=== PATIENT | female | born 2000 | race Caucasian/White ===

== ENCOUNTER 2025-04-11 15:57 | Outpatient (OUT) | payer OTHER, SELFPAY ==
--- OUTSIDE RECORDS SUMMARY | 2025-04-11 16:06 | XMS_ITS | Clinical Summary ---
Author Organization [facility] Address [address] [place] [address] Care Team Providers Care Former Hand Name Role Phone Promise Morley MD Primary Care Provider [phone] Allergies No known active allergies Medications No known medications Active Problems ProblemNoted DateDiagnosed DateGestational diabetes mellitus (GDM) in third trimester ([facility])01/06/2023 Assessment & Plan (03/01/2023 10:08 AM EDT): Continue to check fasting and PP readings with goals of fasting < 95 mg/dl, 1hr < 140 mg/dl, 2 hr < 120 mg/dl. She is to call with any problems or not improving. Send BG readings on a weeklybasis. When Dagmar Durbin goes to the hospital for delivery, they are to stop NPH insulin. If insulin is needed during delivery, it will be given through IV insulin and monitored by their OB. She should not need insulin after delivery. It is recommended to check blood glucose after delivery about once a month to make sure glucose is not increasing and she is not developing type 2 diabetes. She is goingto increase NPH to 26 units at night. Assessment & Plan (01/17/2023 12:49 PM EDT): Continue to check fasting and PP readings with goals of fasting < 95 mg/dl, 1hr < 140 mg/dl, 2 hr < 120 mg/dl. She is to call with any problems or not improving. Send BG readings on a weeklybasis. Will start NPH at night. Instructed on the use of insulin. When Dagmar Durbin goes to the hospital for delivery, they are to stop NPH insulin. If insulin is needed during delivery, it will be given through IV insulin and monitored by their OB. She should not need insulin after delivery. It is recommended to check blood glucose after delivery about once a month to make sure glucose is not increasing and she is not developing type 2 diabetes. Assessment & Plan (01/06/2023 1:00 PM EDT): Discussed risks and benefits of gestational diabetes. Discussed lifestyle modifcations at length. Given meter and instructed on its use. BG goals of fasting < 95, 1 hr < 140, and 2 hr < 120.Pt is to send me readings in one week for review. Pt is to call with any problems. Care plan was discussed and a copy of this was given to the patient along with current A1c, blood pressure, diabetesmedications. Discussed risk of developing type 2 diabetes in the future and the recommendation to get a 2 hr GTT 6 weeks after delivery. Will follow up as needed. Dysfunctional uterine dbjaxldy95/30/2023Impingement syndrome of left shoulder 11/05/2022Infective otitis navbapy2911/05/2022Internal derangement of left ncnsyoav17/30/2023Pain in left nvgqtkeu77/30/2023Parotid mass11/05/2022 Encounters DateTypeDepartmentCare JllzEwyfhsalkes10/03/2025Telephone [facility] [address] [place] [address] Loren Alvares, from Last 3 Months Immunizations ImmunizationAdministration DatesNext DueDTaP, Ueyimqvxvia82/17/2005,10/21/2000, 1999,1999,1999HPV, Wewejnxcraxb25/19/2012,08/27/2011HPV, Qotvmswgxsv13/16/2012Hep A, ped/adol, 2 dose03/24/2012,08/27/2011Hep B, Adolescent or Hbhydenyt42/11/2000,1999,1999HiB, unspecified 03/21/2000,1999,1999,1999IPV08/23/2004Influenza, live, ghugzxpbac69/28/2009Influenza, seasonal, ocaffxoitd62/13/2005,02/28/2004MMR 08/23/2004,03/21/2000Meningococcal FJP9W6602/06/2017Meningococcal QUC3P3208/27/2011 Novel Axkscccya-E3E0-84, nasal04/11/2009Polio, Khxwqisvnrd36/15/2001,1999, 1999Tdap11/23/2019,08/27/20110116Kiluoojbf21/20/2012,03/21/2000 Family History Medical HistoryRelationNameCommentsNo Known ProblemsBrotherHypertensionFather AsthmaMotherDiabetesMotherHypertensionMotherNo Known ProblemsSisterRelationName StatusCommentsBrother2 brothersFatherAliveMotherAliveSister1 sister Social History Tobacco UseTypesPacks/DayYears UsedDateSmoking Tobacco: NeverSmokeless Tobacco: Never Tobacco Cessation:Counseling Given: Not Answered Alcohol UseStandard Drinks/WeekCommentsNever0 (1 standard drink = 0.6 oz pure alcohol)caffeine intake: noneHumiliation, Afraid, Rape, and Kick questionnaire AnswerDate RecordedWithin the last year, have you been afraid of your partner or ex-partner?No01/02/2023Within the last year, have you been humiliated or emotionally abused in other ways by your partner or ex-partner?No01/02/2023 Within the last year, have you been kicked, hit, slapped, or otherwise physically hurt by your partner or ex-partner?No01/02/2023Within the last year, have you been raped or forced to have any kind of sexual activity by your part ner or ex-partner?No01/02/2023Social Connection and Isolation PanelAnswerDate RecordedIn a typical week, how many times do you talk on the phone with family, friends, or neighbors?More than three times a week01/02/2023How often do you get together with friends or relatives?More than three times a week01/02/2023How often do you attend sabianist or taoism services?More than 4 times per year 01/02/2023o you belong to any clubs or organizations such as sabianist groups, unions, fraternal or athletic groups, or school groups?Yes01/02/2023How often do you attend meetings of the clubs or organizations you belong to?More than 4 times per year01/02/2023re you , , , , never , or living with a partner?Rmcpqyb7501/02/2023UDIT-CAnswerDate RecordedQ1: How often do you have a drink containing alcohol?Never01/02/2023Q2: How many drinks containing alcohol do you have on a typical day when you are drinking? Patient does not drink01/02/2023Q3: How often do you have six or more drinks on one occasion?Never01/02/2023Overall Financial Resource Strain (CARDIA)AnswerDate RecordedHow hard is it for you to pay for the very basics like food, housing, medical care, and heating?Not hard at all01/02/2023HQ-2AnswerDate Recorded Patient Health Questionnaire-2 Fvrfl445Fin[facility] [place] of Occupational Health - Occupational Stress QuestionnaireAnswerDate RecordedDo you feel stress - tense, restless, nervous, or anxious, or unable to sleep at night because your mind is troubled all the time - these days?Not at all01/02/2023Exercise Vital SignAnswerDate RecordedOn average, how many days per week do you engage in moderate to strenuous exercise (like a brisk walk)?3 days01/02/2023On average, how many minutes do you engage in exercise at this level?30 min01/02/2023Hunger Vital SignAnswerDate RecordedWithin the past 12 months, you worried that your food would run out before you got the money to buymore.Never true01/02/2023 Within the past 12 months, the food you bought just didn't last and you didn't have money to get more.Never true01/02/2023RAPARE - TransportationAnswerDate RecordedIn the past 12 months, has lack of transportation kept you from medical appointments or from getting medications?No01/02/2023In the past 12 months, has lack of transportation kept you from meetings, work, or from getting things needed for daily living?No01/02/2023Housing Stability Vital SignAnswerDate RecordedIn the last 12 months, was there a time when you were not able to pay the mortgage or rent on time?No01/02/2023In the last 12 months, how many places have you lived?In the last 12 months, was there a time when you did not have a steady place to sleep or slept in ashelter (including now)?No 01/02/2023CommentsUnknownSex and Gender InformationValueDate RecordedSex Assigned at NubmwDvrgki57/30/2023 8:35 AM EDTLegal QyfOeklnl29/15/2023 7:19 PM EDTGender KfpzcugeIllohr24/30/2023 8:35 AM EDTSexual OrientationStraight 11/05/2022 8:35 AM EDT Last Filed Vital Signs Vital SignReadingTime TakenCommentsBlood Rosstudh097/8805/26/2024 2:12 PM EST Geymu5507 3:08 PM CAASwlqmhfvcne56.8 ??C (98.2 ??F)02/28/2023 3:08 PM EDTRespiratory Rate--Oxygen Tmvfwdpvac53%02/28/2023 3:08 PM EDTInhaled Oxygen Concentration--Wvcndi854 kg (278 lb)05/26/2024 2:12 PM TFLSqopbt230.6 cm (5' 6 ) 05/06/2023 1:50 PM ESTBody Mass Index44.8705/06/2023 1:50 PM EST Plan of Treatment Not on file Insurance Care Teams Team MemberRelationshipSpecialtyStart DateEnd Date Promise Morley MD PCP - GeneralFamily Medicine11/12/22
--- OUTSIDE RECORDS SUMMARY | 2025-04-11 16:06 | XMS_ITS | Encounter Summary ---
Author Organization [facility] Address [address] [place] [address] Care Team Providers Care Outbound Sales Agent Name Role Phone Promise Morley MD Primary Care Provider Encounter Details DateTypeDepartmentCare Team (Latest Contact Info)Gwwsdcotrgf12/03/2025Telephone [facility] [address] [facility] [address] [place] [address] Loren Alvares DO [address] [facility] [address] [place] [address] Social History Tobacco UseTypesPacks/DayYears UsedDateSmoking Tobacco: NeverSmokeless Tobacco: NeverAlcohol UseStandard Drinks/WeekCommentsNever0 (1 standard drink = 0.6 oz pure alcohol)caffeine intake: noneHumiliation, Afraid, Rape, and Kick questionnaireAnswerDate RecordedWithin the last year, have you been afraid of your partner or ex-partner?No01/02/2023Within the last year, have you been humiliated or emotionally abused in other ways by your partner or ex-partner?No 01/02/2023Within the last year, have you been kicked, [...] times a week01/02/2023How often do you attend episcopalian or yazidi services?More than 4 times per year 01/02/2023o you belong to any clubs or organizations such as episcopalian groups, unions, fraWebchutney or athletic groups, or school groups?Yes01/02/2023How often do you attend meetings of the clubs or organizations you belong to?More than 4 times per year01/02/2023re you , , , , never , or living with a partner?Liajqqc2501/02/2023UDIT-CAnswerDate RecordedQ1: How often do you have a [...] hard at all01/02/2023HQ-2AnswerDate Recorded Patient Health Questionnaire-2 Rvcax824[facility] [place] of Occupational Health - Occupational Stress QuestionnaireAnswerDate [...] 01/02/2023CommentsUnknownSex and Gender InformationValueDate RecordedSex Assigned at BbypzSaiast00/30/2023 8:35 AM EDTLegal TuxPhteit04/15/2023 7:19 PM EDTGender LweuoepbEajozg35/30/2023 8:35 AM EDTSexual OrientationStraight 11/05/2022 8:35 AM EDTdocumented as of this encounter Miscellaneous Notes * Telephone Encounter - Jane Hernandez RN - 04/11/2025 10:46 AM EST Called and spoke with pt. Confirmed positive UPT. LMP 01/10/25- normally regular. Pt reporting 20 days of light spotting after menses, but states tests throughout were all positive. Reporting spotting has stopped and she has not had any over the last few days. - hx GDM and PCB. Patient of [facility], insurance MMO. Discussed HCG, pt agreeable-asking for order to be sent to [facility]. Order sent, advised pt I will call with results. Discussed repeating if level does not align with LMP. * Telephone Encounter - Alee Obregon - 04/11/2025 10:07 AM EST Positive preg test on 03/06/25. 2nd . LMP 01/20/25. [facility] patient. Had subchorionic hemorrhagewith 1st . Has had some light spotting with this from 03/15 until 04/03 that comes and goes. Has Medical [place]. Please contact. documented in this encounter Plan of Treatment NameTypePriorityAssociated DiagnosesOrder SchedulehCG, quantitative, LabRoutine examination or test, positive result ([facility]) Expected: 04/11/2025 (Approximate), Expires: 04/11/2026documented as of this encounter Visit Diagnoses Diagnosis examination or test, positive result ([facility]) examination or test, positive result documented in this encounter Care Teams Team MemberRelationshipSpecialtyStart DateEnd Date Promise Morley MD PCP - GeneralFamily Medicine11/12/22documented as of this encounter
== END 2025-04-11 15:58 | disposition home or self-care (01) ==
PROVIDERS: PCP Family Medicine; Visit Provider Obstetrics & Gynecology
DX: Z32.01 Encounter for pregnancy test, result positive (principal)
CPT/HCPCS: 36415; 84702

== ENCOUNTER 2025-04-13 06:38 | Outpatient (RCR) | payer OTHER, SELFPAY ==
--- OUTSIDE RECORDS SUMMARY | 2025-04-13 06:44 | XMS_ITS | Encounter Summary ---
Author Organization [facility] Address [address] [place] [address] Care Team Providers Care Bankruptcy Processor Name Role Phone Promise Morley MD Primary Care Provider [phone] Encounter Details DateTypeDepartmentCare Team (Latest Contact Info)Rwwxaoafuxm18/03/2025Telephone [facility] [address] [facility] [address] [place] [address] Loren Alvares DO [address] [facility] [address] [place] [address] Social History Tobacco UseTypesPacks/DayYears UsedDateSmoking Tobacco: NeverSmokeless [...] times a week01/02/2023How often do you attend scientology or mu-ism services?More than 4 times per year 01/02/2023o you belong to any clubs or organizations such as scientology groups, unions, [employer]Tax[employer] or athletic groups, or school groups?Yes01/02/2023How often do you attend meetings of the clubs or organizations you belong to?More than 4 times per year01/02/2023re you , , , , never , or living with a partner?Htuxnns9301/02/2023UDIT-CAnswerDate RecordedQ1: How often do you have a [...] hard at all01/02/2023HQ-2AnswerDate Recorded Patient Health Questionnaire-2 Unwyc455Finbrigham city community hospital [place] of Occupational Health - Occupational Stress QuestionnaireAnswerDate [...] 01/02/2023CommentsUnknownSex and Gender InformationValueDate RecordedSex Assigned at MqpfjWyjixp18/30/2023 8:35 AM EDTLegal PwoEyaodz22/15/2023 7:19 PM EDTGender OxdycxxgFomdbf10/30/2023 8:35 AM EDTSexual OrientationStraight 11/05/2022 8:35 AM EDTdocumented as of this encounter Miscellaneous Notes * Telephone Encounter - Jane Hernandez RN - 04/12/2025 8:15 AM EST Called and spoke with pt. Discussed HCG 10. Advised to have repeated again tomorrow to see what levels are doing based on LMP being 8/4 and having spotting afterwards. Pt agreeable. Orders to be sent to [facility]. * Telephone Encounter - Jane Hernandez RN - 04/11/2025 10:46 AM EST Called and spoke with pt. Confirmed positive UPT. LMP 01/10/25- normally regular. Pt reporting 20 days of light spotting after menses, but states tests throughout were all positive. Reporting spotting has stopped and she has not had any over the last few days. - hx GDM and PCB. Patient of [facility], insurance MMO. Discussed HCG, pt agreeable-asking for order to be sent to [facility]. Order sent, advised pt I will call with results. Discussed repeating if level does not align with LMP. * Telephone Encounter - Alee Sabas - 04/11/2025 10:07 AM EST Positive preg test on 03/06/25. 2nd . LMP 01/20/25. [facility] patient. Had subchorionic hemorrhagewith 1st . Has had some light spotting with this from 03/15 until 04/03 that comes and goes. Has Medical [place]. Please contact. documented in this encounter Plan of Treatment NameTypePriorityAssociated DiagnosesOrder SchedulehCG, quantitative, LabRoutine examination or test, positive result ([facility]) Expected: 04/11/2025 (Approximate), Expires: 04/11/2026hCG, quantitative, pregnancyLabRoutine examination or test, positive result ([facility]) Expected: 04/12/2025 (Approximate), Expires: 04/12/2026documented as of this encounter Visit Diagnoses Diagnosis examination or test, positive result ([facility]) examination or test, positive result documented in this encounter Care Teams Team MemberRelationshipSpecialtyStart DateEnd Date Promise Morley MD PCP - GeneralFamily Medicine11/12/22documented as of this encounter
--- OUTSIDE RECORDS SUMMARY | 2025-04-13 06:44 | XMS_ITS | Clinical Summary ---
Author Organization [facility] Address [address] [place] [address] Care Team Providers Care Volunteer Firefighter Name Role Phone Promise Morley MD Primary Care Provider [phone] Allergies No known active allergies Medications No known medications Active Problems ProblemNoted DateDiagnosed DateGestational diabetes mellitus (GDM) in third trimester ([facility])01/06/2023 Assessment & Plan (03/01/2023 10:08 AM EDT): [...] Will follow up as needed. Dysfunctional uterine zcqfdvay94/30/2023Impingement syndrome of left shoulder 11/05/2022Infective otitis oxrtkcs4811/05/2022Internal derangement of left xcfdqadh85/30/2023Pain in left /30/2023Parotid mass11/05/2022 Encounters DateTypeDepartmentCare LsxkUudezvwokkw12/03/2025Telephone [facility] [address] [place] [address] Loren Alvares, from Last 3 Months Immunizations ImmunizationAdministration DatesNext DueDTaP, Vtqqjnedmzc53/17/2005,10/21/2000, 1999,1999,1999HPV, Eaisnuzprytg68/19/2012,08/27/2011HPV, Bsoauiqfqpx06/16/2012Hep A, ped/adol, 2 dose03/24/2012,08/27/2011Hep B, Adolescent or Flkdwsmjg44/11/2000,1999,1999HiB, unspecified 03/21/2000,1999,1999,1999IPV08/23/2004Influenza, live, efxuvroyka31/28/2009Influenza, seasonal, oesliqlzoi76/13/2005,02/28/2004MMR 08/23/2004,03/21/2000Meningococcal LKN4C7702/06/2017Meningococcal IQT8F8008/27/2011 Novel Fgkuviryp-W2F2-66, nasal04/11/2009Polio, Tbfpsjottwy91/15/2001,1999, 1999Tdap11/23/2019,08/27/20114500Ayslouygs22/20/2012,03/21/2000 Family History Medical HistoryRelationNameCommentsNo Known ProblemsBrotherHypertensionFather AsthmaMotherDiabetesMotherHypertensionMotherNo [...] times a week01/02/2023How often do you attend alevism or church services?More than 4 times per year 01/02/2023o you belong to any clubs or organizations such as alevism groups, unions, fraternal or athletic groups, or school groups?Yes01/02/2023How often do you attend meetings of the clubs or organizations you belong to?More than 4 times per year01/02/2023re you , , , , never , or living with a partner?Wkubhpk6101/02/2023UDIT-CAnswerDate RecordedQ1: How often do you have a [...] hard at all01/02/2023HQ-2AnswerDate Recorded Patient Health Questionnaire-2 Pecom888F[facility] [place] of Occupational Health - Occupational Stress QuestionnaireAnswerDate [...] 01/02/2023CommentsUnknownSex and Gender InformationValueDate RecordedSex Assigned at ZqzacKuhhvi83/30/2023 8:35 AM EDTLegal JyoDnxcqp05/15/2023 7:19 PM EDTGender FfbxoexpIqheiy21/30/2023 8:35 AM EDTSexual OrientationStraight 11/05/2022 8:35 AM EDT Last Filed Vital Signs Vital SignReadingTime TakenCommentsBlood Vmvqqbtx800/8805/26/2024 2:12 PM EST Dvsom3321 3:08 PM ORFOcunrddqwgq46.8 ??C (98.2 ??F)02/28/2023 3:08 PM EDTRespiratory Rate--Oxygen Nuzlswazwl74%02/28/2023 3:08 PM EDTInhaled Oxygen Concentration--Rlofss436 kg (278 lb)05/26/2024 2:12 PM CDDWwxmos662.6 cm (5' 6 ) 05/06/2023 1:50 PM ESTBody Mass Index44.8705/06/2023 1:50 PM EST Plan of Treatment Not on file Insurance Care Teams Team MemberRelationshipSpecialtyStart DateEnd Date Promise Morley MD PCP - GeneralFamily Medicine11/12/22
== END 2025-05-09 08:28 | disposition home or self-care (01) ==
LOC: LAB 06:38
PROVIDERS: PCP Family Medicine; Visit Provider Obstetrics & Gynecology
DX: Z32.01 Encounter for pregnancy test, result positive (principal); Z51.81 Encounter for therapeutic drug level monitoring; Z79.899 Other long term (current) drug therapy
CPT/HCPCS: 36415; 84702

== ENCOUNTER 2025-05-02 10:40 | Emergency (ER) | payer OTHER, SELFPAY ==
--- OUTSIDE RECORDS SUMMARY | 2025-04-18 08:30 | XMS_ITS | Encounter Summary ---
Author Organization [facility] Address [address] [place] [address] Care Team Providers Care Cat Scan Technologist Name Role Phone Promise Morley MD Primary Care Provider [phone] Reason for Visit * ReasonCommentsInitial VisitNurse Visit * Maternity Services (Routine) - ClosedSpecialtyDiagnoses / ProceduresReferred By ContactReferred To ContactObstetrics and Gynecology Diagnoses Encounter for supervision of other normal , first trimester ([facility]) Procedures Please check global maternity benefits. NIKKI 10/17/2025. . Lroen Alvares, DO [address] [place] [address] Phone: tel: fax: Loren Alvares, DO [address] [place] [address] Phone: tel: fax: Referral IDStatusReasonStart DateExpiration DateVisits RequestedVisits [id number] Other / Encounter Details DateTypeDepartmentCare Team (Latest Contact Info)Bcftdczvixf66/10/2025 8:30 AM ESTInitial [facility] [address] [place] [address] GA: 10w0d Social History Tobacco UseTypesPacks/DayYears UsedDateSmoking Tobacco: NeverSmokeless Tobacco: NeverAlcohol UseStandard Drinks/WeekCommentsNever0 (1 standard drink = 0.6 oz pure alcohol)caffeine intake: 1 cup of r7Kqkyspdvqqz, Afraid, Rape, and Kick questionnaireAnswerDate RecordedWithin the [...] times a week01/02/2023How often do you attend shinto or jew services?More than 4 times per year 01/02/2023o you belong to any clubs or organizations such as shinto groups, unions, fraternal or athletic groups, or school groups?Yes01/02/2023How often do you attend meetings of the clubs or organizations you belong to?More than 4 times per year01/02/2023re you , , , , never , or living with a partner?Jndbyxk8901/02/2023UDIT-CAnswerDate RecordedQ1: How often do you have a [...] hard at all01/02/2023HQ-2AnswerDate Recorded Patient Health Questionnaire-2 [place] [facility] [facility] [employer] - Occupational Stress QuestionnaireAnswerDate [...] steady place to sleep or slept in [facility] (including now)?No 01/02/2023Estimated Date of EberorsbBmmjycfuRqn90/08/2026Based on UltrasoundSex and Gender InformationValueDate RecordedSex Assigned at Zztcny1611/05/2022 8:35 AM EDTLegal RscTjrfbr17/15/2023 7:19 PM EDTGender Identity Nmfvpl9811/05/2022 8:35 AM EDTSexual LmofgutfnafEidizwgx44/30/2023 8:35 AM EDT documented as of this encounter Progress Notes * Marguerite Perez LPN - 04/18/2025 8:30 AM EST Name: Dagmar Durbin Date/Time of Service:04/18/2025 9:04 AM :2000 Age: 25 y.o. Chief Complaint Chief Complaint Patient presents with Initial Visit Nurse Visit Dagmar Durbin is a 25 y.o. at 14w0d with a working estimated date of delivery of 10/17/2025, by Last Menstrual Period who presents for an initial visit. OB History Para Term AB Living 2 1 1 1 SAB IAB Ectopic Multiple Live Births 1 # Outcome Date GA Lbr Tylor/2nd Weight Sex Type Anes PTL Lv 2 Current 1 Term 03/24/23 39w1d 8 lb 10 oz M CS-LTranv EPI APRYL Complications: Failure to progress in labor ([facility]) Obstetric Comments Pap smear 05/06/23 wnl HCG 47,000 04/11/25 HCG 57,913 04/13/25 Past Medical / Surgical History Medical History[1] Surgical History[2] Family History Family History[3] Social History reports that she has never smoked. She has never used smokeless tobacco. She reports that she does not drink alcohol and does not use drugs. Tobacco Use History[4] Genetic Screening Genetic Screening/Teratology Counseling- Includes patient, baby's father, or anyone in either family with: Positive Medications (including supplements, vitamins, herbs, or OTC drugs)/illicit/recreational drugs/alcohol since last menstrual period Yes If yes, agent(s) and strength/dosage see med list Negative Patient's age 35 years or older as of estimated date of delivery No Thalassemia (Telugu, Bangladeshi, Mediterranean, or background): MCV less than 80 No Neural tube defect (Meningomyelocele, Spina bifida, or Anencephaly) No Congenital heart defect No Down syndrome No Stiven-Sachs (Ashkenazi Synagogue, Cajun, Faroese [place]) No Lasha disease (Ashkenazi Synagogue) No Familial dysautonomia (Ashkenazi Synagogue) No Sickle cell disease or trait () No Hemophilia or other blood disorders No Muscular dystrophy No Cystic fibrosis No Debary's chorea No Intellectual disability and/or autism No Other inherited genetic or chromosomal disorder No Maternal metabolic disorder (eg. Type 1 diabetes, PKU) No Patient or baby's father had child with defects not listed above No Recurrent loss, or a stillbirth No MEDICATIONS: Medications Ordered Prior to Encounter[5] Allergies Allergies[6] Patient reports nausea and vomiting. Discussed smaller meals, michelle products, OTC Vitamin B6 50mg BID and Unisom 25mg BID. Pt asking for zofran d/t it working best last . Pt states she did have bleeding for 3 weeks straight. Pt states it was light spotting but has since stopped. Advised pt bleeding can be normal and HCG were going up appropriately. Pt states she did go to get an US donein Jeannine - pt did get to hear babys heartbeat at that appt. Patient counseled on Genetic and Chromosomal testing. Pt not interested at this time. Last PAP: 05/06/23 neg ASSESSMENT / PLAN Labs Ordered and printed for pt to take with her Appointments scheduled for US on 04/19/25. Advised pt KER schedule is booked but we would reach outto her tomorrow to schedule NOB Marguerite Perez LPN 04/18/2025 9:04 AM [1] Past Medical History: Diagnosis Date Depression not current Gestational diabetes ([facility]) Varicella zoster [2] Past Surgical History: Procedure Laterality Date SECTION, LOW TRANSVERSE 03/24/2023 CHOLECYSTECTOMY 05/2018 COLONOSCOPY IUD INSERTION 07/09/2017 Nexplanon insertion NAIL REMOVAL 06/25/2017 [3] Family History Problem Relation Name Age of Onset Asthma Mother Diabetes Mother Hypertension Mother Sleep apnea Mother Hypertension Father Sleep apnea Father No Known Problems Sister Sleep apnea Brother Sleep apnea Maternal Grandmother Sleep apnea Maternal Grandfather Leukemia Paternal Grandmother Sleep apnea Paternal Grandfather [4] Social History Tobacco Use Smoking Status Never Smokeless Tobacco Never [5] Current Outpatient Medications on File Prior to Visit Medication Sig Dispense Refill multivitamin () 27-0.8 MG tablet Take 1 tablet by mouth Daily No current facility-administered medications on file prior to visit. [6] No Known Allergies documented in this encounter Plan of Treatment DateTypeDepartmentCare Team (Latest Contact Info)Fjptpfneesi06/16/2025 3:30 PM ESTRoutine [facility] [place] [facility] [address] [place] [address] Giorgio Loren Hernández DO [address] [place] [address] documented as of this encounter Goals GoalPatient Goal TypeAssociated ProblemsRecent ProgressPatient-Stated?Author Record Your Blood Sugar Daily Care PlanMeal Tracking and Blood Sugar MonitoringNoMarguerite Perez LPNdocumented as of this encounter Procedures Procedure NamePriorityDate/TimeAssociated DiagnosisCommentsDRUG SCREEN 17 W/CONF, QONwivmtd15/10/2025 9:19 AM EST Encounter for drug screening URINE CULTURE CLEAN CATCH HTOTZLVopmyhu81/10/2025 9:19 AM EST UR MICROSCOPIC TZJGPRShebdlb77/10/2025 9:19 AM EST RPR (DX) W/REFL TITER AND CONFIRMATORY VYWAGJBPgmewkp80/10/2025 9:19 AM EST care, subsequent in first trimester ([facility]) HEPATITIS C NRRFHNUHKrmiwwi38/10/2025 9:19 AM EST care, subsequent in first trimester ([facility]) HYPERCOAG PANEL OXCEHETlecphs56/10/2025 9:19 AM EST care, subsequent in first trimester ([facility]) RUBELLA AB (IGG), IMMUNE LDNDXHTocvnox58/10/2025 9:19 AM EST care, subsequent in first trimester ([facility]) HEPATITIS B SURFACE ANTIGEN W/REFL JGWIUPKWdsqdtl58/10/2025 9:19 AM EST care, subsequent in first trimester ([facility]) URINALYSIS, COMPLETE W/NGBLCMFAHBSvbmqes63/10/2025 9:19 AM EST care, subsequent in first trimester ([facility]) CBC (INCLUDES DIFF/PLT)Buawajp1604/18/2025 9:19 AM EST care, subsequent in first trimester ([facility]) BLOOD TYPE AND ZHEUTOLrxsnxn40/10/2025 9:19 AM EST care, subsequent in first trimester ([facility]) CULTURE, URINE, AKHHXVYHzlymza43/10/2025 9:19 AM EST care, subsequent in first trimester ([facility]) documented in this encounter Results * Urine Culture Clean Catch Reflex (04/18/2025 9:19 AM EST)ComponentValueRef RangeTest MethodAnalysis TimePerformed AtPathologist SignatureUr Cult 1No growthLABCORPSpecimen (Source)Anatomical Location / LateralityCollection Method / VolumeCollection TimeReceived Time04/18/2025 9:19 AM EST04/18/2025 Narrative [facility] - 04/20/2025 11:06 PM EST Performed at: [address] ??[id number] Operations Assistant: Manuel Sullivan PhD, Phone: ??[phone] Authorizing ProviderResult TypeResult StatusKathleen E Rinkes DOLAB URINE ORDERABLESFinal ResultPerforming OrganizationAddressCity/State/[facility] CodePhone Number [facility] * (ABNORMAL) Ur Microscopic Reflex (04/18/2025 9:19 AM EST)ComponentValueRef RangeTest MethodAnalysis TimePerformed AtPathologist SignatureWBC Ur11-30(A)0 - 5 /hpfLABCORPRBC UrNone seen0 - 2 /hpfLABCORPEpithelial Cells (non renal) Ur 0-100 - 10 /hpfLABCORPCasts UrNone seenNone seen /lpfLABCORPBacteria Ur Moderate(A)None seen/FewLABCORPSpecimen (Source)Anatomical Location / LateralityCollection Method / VolumeCollection TimeReceived Time04/18/2025 9:19 AM EST04/18/2025 Narrative [facility] - 04/20/2025 11:06 PM EST Performed at: [address] ??[id number] Operations Assistant: Manuel Sullivan PhD, Phone: ??[phone] Authorizing ProviderResult TypeResult StatusKathleen E Rinkes DOLAB URINE ORDERABLESFinal ResultPerforming OrganizationAddSelect Specialty Hospital [facility] Laurel Highlandsty/State/ZIP CodePhone Number [facility] * Rpr (dx) w/refl titer and confirmatory testing (04/18/2025 9:19 AM EST) ComponentValueRef RangeTest MethodAnalysis TimePerformed AtPathologist SignatureRPRNon ReactiveNon ReactiveLABCORPSpecimen (Source)Anatomical Location / LateralityCollection Method / VolumeCollection TimeReceived Time BloodVenous blood specimen / Ighdeys7504/18/2025 9:19 AM EST04/18/2025 Narrative [facility] - 04/20/2025 11:06 PM EST Performed at: [address] ??[id number] Operations Assistant: Manuel Sullivan PhD, Phone: ??[phone] Authorizing ProviderResult TypeResult StatusKathleen E Rinkes DOLAB BLOOD ORDERABLESFinal ResultPerforming OrganizationAddSelect Specialty Hospital [facility] Highlandsty/State/[facility] CodePhone Number [facility] * HIV-2 antigen (04/18/2025 9:19 AM EST)ComponentValueRef RangeTest Method Analysis TimePerformed AtPathologist SignatureHIV Scr 4th GenNon ReactiveNon ReactiveLABCORPComment: HIV-1/HIV-2 antibodies and HIV-1 p24 antigen were NOT detected. There is no laboratory evidence of HIV infection. HIV Negative Specimen (Source)Anatomical Location / LateralityCollection Method / Volume Collection TimeReceived TimeBloodVenous blood specimen / Tdsmpmz8404/18/2025 9:19 AM EST04/18/2025 Narrative [facility] - 04/20/2025 11:06 PM EST Performed at: [address] ??[id number] Operations Assistant: Manuel Sullivan PhD, Phone: ??[phone] Authorizing ProviderResult TypeResult StatusLoren Alvares DOL BLOOD ORDERABLESFinal ResultPerforming OrganizationAddressCity/State/ZIP CodePhone Number [facility] * DRUG SCREEN 17 W/CONF, UR (04/18/2025 9:19 AM EST)ComponentValueRef RangeTest MethodAnalysis TimePerformed AtPathologist AaxoxpocsRZVQVSJVGU16>=20 mg/dL [facility]ABCORPComment:REFERENCE RANGE: Ref Range>=20ETHANOL BIOMARKERS IANegative CUTOFF:500 ng/mLLABCORPAMPHETAMINES IANegativeCUTOFF:300 ng/mLLABCORP BARBITURATES IANegativeCUTOFF:200 ng/mLLABCORPBENZODIAZEPINES IANegative CUTOFF:50 ng/mLLABCORPCOCAINE METABOLITE IANegativeCUTOFF:150 ng/mLLABC[facility]P PHENCYCLIDINE IANegativeCUTOFF:25 ng/mLLABCORPCANNABINOIDS IANegativeCUTOFF:20 ng/mLLABCORP6-ACETYLMORPHINE IANegativeCUTOFF:10 ng/mLLABCORPOPIATE CLASS IA NegativeCUTOFF:100 ng/mLLABCORPOXYCODONE CLASS IANegativeCUTOFF:100 ng/mL LABCORPMETHADONE IANegativeCUTOFF:100 ng/mLLABCORPFENTANYL IANegative CUTOFF:2.0 ng/mLLABCORPBUPRENORPHINE IANegativeCUTOFF:5.0 ng/mLLABCORPTRAMADOL IANegativeCUTOFF:200 ng/mLLABCORPPROPOXYPHENE IANegativeCUTOFF:300 ng/mL LABCORPTAPENTADOL IANegativeCUTOFF:200 ng/mLLABCORPNICOTINE METABOLITENegative LABCORPCOTININENot Detectedng/mLLABCORPSpecimen (Source)Anatomical Location / LateralityCollection Method / VolumeCollection TimeReceived Time04/18/2025 9:19 AM EST04/18/2025 Narrative [facility] - 04/20/2025 11:06 PM EST Test(s) 956737-CJGBGOK BIOMARKERS IA; 721921-TQZCGEQR IA was developed and its performance characteristics determined by [facility]. It has not been cleared or approved by the Food and Drug Administration. Performed at: ??01 - [facility] [address] [place] [address] ??[id number] Operations Assistant: Yessenia Quan [facility], Phone: ??[phone] Authorizing ProviderResult TypeResult StatusKatcharu PIRES BLOOD ORDERABLESFinal ResultPerforming OrganizationAddressty/State/ZIP CodePhone Number [facility] * Hepatitis C antibody (04/18/2025 9:19 AM EST)ComponentValueRef RangeTest MethodAnalysis TimePerformed AtPathologist SignatureHep C Virus AbNon Reactive Non ReactiveLABCORPComment: HCV antibody alone does not differentiate between previously resolved infection and active infection. Equivocal and Reactive HCV antibody results should be followed up with an HCV RNA test to support the diagnosis of active HCV infection. Specimen (Source)Anatomical Location / LateralityCollection Method / Volume Collection TimeReceived TimeBloodVenous blood specimen / Ujosthp3404/18/2025 9:19 AM EST04/18/2025 Narrative [facility] - 04/20/2025 11:06 PM EST Performed at: - [facility] ??[id number] Operations Assistant: Manuel Sullivan PhD, Phone: ??[phone] Authorizing ProviderResult TypeResult StatusLoren PIRES BLOOD ORDERABLESFinal ResultPerforming OrganizationAddressty/State/ZIP CodePhone Number [facility] * Type and screen (04/18/2025 9:19 AM EST)ComponentValueRef RangeTest Method Analysis TimePerformed AtPathologist SignatureABO GroupingOLABCORPRh Factor PositiveLABCORPComment: Please note: Prior records for this patient's ABO / Rh type are not available for additional verification. Antibody ScreenNegativeNegativeLABCORPSpecimen (Source)Anatomical Location / LateralityCollection Method / VolumeCollection TimeReceived TimeBloodVenous blood specimen / Ohccrda7304/18/2025 9:19 AM EST04/18/2025 Narrative [facility] - 04/20/2025 11:06 PM EST Performed at: [address] ??[id number] Operations Assistant: Manuel Sullivan PhD, Phone: ??[phone] Authorizing ProviderResult TypeResult StatusKatcharu Alvares DOLAB BLOOD ORDERABLESFinal ResultPerforming OrganizationAddressCity/State/ZIP CodePhone Number [facility] * Hepatitis B surface antigen (04/18/2025 9:19 AM EST)ComponentValueRef Range Test MethodAnalysis TimePerformed AtPathologist SignatureHep B Surf Ag Scr NegativeNegativeLABCORPSpecimen (Source)Anatomical Location / Laterality Collection Method / VolumeCollection TimeReceived TimeBloodVenous blood specimen / Fqksxps2204/18/2025 9:19 AM EST04/18/2025 Narrative [facility] - 04/20/2025 11:06 PM EST Performed at: - [facility] ??[id number] Operations Assistant: Manuel Sullivan PhD, Phone: ??[phone] Authorizing ProviderResult TypeResult StatusKatcharu Alvares DOLAB BLOOD ORDERABLESFinal ResultPerforming OrganizationAddressCity/State/ZIP CodePhone Number [facility] * Rubella antibody, IgG (04/18/2025 9:19 AM EST)ComponentValueRef RangeTest MethodAnalysis TimePerformed AtPathologist SignatureRubella IgG Abs5.51Immune >0.99 indexLABCORPComment: Non-immune <0.90 ?Equivocal ??0.90 - 0.99 Immune >0.99 Specimen (Source)Anatomical Location / LateralityCollection Method / Volume Collection TimeReceived TimeBloodVenous blood specimen / Nmdybhf7504/18/2025 9:19 AM EST04/18/2025 Narrative [facility] - 04/20/2025 11:06 PM EST Performed at: - [facility] ??[id number] Operations Assistant: Manuel Sullivan PhD, Phone: ??[phone] Authorizing ProviderResult TypeResult StatusKatcharu Alvares DOLAB BLOOD ORDERABLESFinal ResultPerforming OrganizationAddressCity/State/ZIP CodePhone Number [facility] * (ABNORMAL) CBC and differential (04/18/2025 9:19 AM EST)ComponentValueRef RangeTest MethodAnalysis TimePerformed AtPathologist SignatureWBC9.53.4 - 10.8 x10E3/uLLABCORPRBC5.023.77 - 5.28 x10E6/mTTOELMQAHye43.911.1 - 15.9 g/dL NCZJSUPSxz90.834.0 - 46.6 %MGJFTIKNJS0610 - 97 yMWPOPNXWFXM89.726.6 - 33.0 pg HVNSBUTJOBD43.331.5 - 35.7 g/cMGRXRSUVAQB94.811.7 - 15.4 %DQSCWJLKgphhrotk707 (H)150 - 450 x10E3/hUTJIFEPCChbdkexxruw29Bjv Estab. %ZHWYBASTvverl71Aqa Estab. %FEZTERTRdjbawlin7Edk Estab. %UYMXYPZGuy2Wtv Estab. %ZNHGSWCCizmt9Orz Estab. %LABCORPNeutrophils Abs6.31.4 - 7.0 x10E3/uLLABCORPLymphs Abs2.40.7 - 3.1 x10E3/uLLABCORPMonocytesAbs0.70.1 - 0.9 x10E3/uLLABCORPEos Abs0.20.0 - 0.4 x10E3/uLLABCORPBaso Abs0.00.0 - 0.2 x10E3/uLLABCORPImmature Aanoxyzbolvy2Wsx Estab. %LABCORPImmature Grans Abs0.00.0 - 0.1 x10E3/uLLABCORPSpecimen (Source) Anatomical Location / LateralityCollection Method / VolumeCollection Time Received TimeBloodVenous blood specimen / Bnsplrk6104/18/2025 9:19 AM EST 04/18/2025 Narrative [facility] - 04/20/2025 11:06 PM EST Performed at: [address] ??[id number] Operations Assistant: Manuel Sullivan PhD, Phone: ??[phone] Authorizing ProviderResult TypeResult StatusLoren Alvares DOLAB BLOOD ORDERABLESFinal ResultPerforming OrganizationAddressCity/State/ZIP CodePhone Number [facility] * (ABNORMAL) Urinalysis with microscopic (04/18/2025 9:19 AM EST)ComponentValue Ref RangeTest MethodAnalysis TimePerformed AtPathologist SignatureSpecific Hessmer Urine1.0051.005 - 1.030LABCORPpH Urine6.55.0 - 7.5LABC[facility]PColor Urine YellowYellowLABCORPAppearance UrineClearClearLABCORPWBC Esterase Urine1+(A) NegativeLABCORPProtein UrineNegativeNegative/TraceLABCORPGlucose UrineNegative NegativeLABCORPKetones UrineNegativeNegativeLABCORPOccult Blood UrineTrace(A) NegativeLABCORPBilirubin UrineNegativeNegativeLABCORPUrobilinogen,Semi-Qn Urine0.20.2 - 1.0 mg/dLLABCORPNitrite UrineNegativeNegativeLABCORPUr MicroscopicSee below:[facility]PComment:Microscopic was indicated and was performed.Specimen (Source)Anatomical Location / LateralityCollection Method / VolumeCollection TimeReceived TimeUrineUrine specimen obtained by clean catch procedure / Yvbtgbl1204/18/2025 9:19 AM EST04/18/2025 Narrative [facility] - 04/20/2025 11:06 PM EST Performed at: [address] ??[id number] Operations Assistant: Manuel Sullivan PhD, Phone: ??[phone] Authorizing ProviderResult TypeResult StatusKathleen E Rinkes DOLAB URINE ORDERABLESFinal ResultPerforming OrganizationAddressCity/State/ZIP CodePhone Number [facility] * Urine culture (04/18/2025 9:19 AM EST)ComponentValueRef RangeTest Method Analysis TimePerformed AtPathologist SignatureUrine Cult Rt StatusFinal report [facility]PSpecimen (Source)Anatomical Location / LateralityCollection Method / VolumeCollection TimeReceived TimeUrineUrine specimen obtained by clean catch procedure / Rekeeqp2204/18/2025 9:19 AM EST04/18/2025omment:UR Narrative [facility] - 04/20/2025 11:06 PM EST Performed at: [address] ??[id number] Operations Assistant: Manuel Sullivan PhD, Phone: ??[phone] Authorizing ProviderResult TypeResult StatusKathlwendi Alvares DOL MICROBIOLOGY - GENERAL ORDERABLESFinal ResultPerforming OrganizationAddressCity/State/ZIP CodePhone Number [facility] documented in this encounter Visit Diagnoses Diagnosis care, subsequent in first trimester ([facility]) Encounter for drug screening Nausea and vomiting during ([facility]) documented in this encounter Additional Health Concerns Active ProblemsNoted DateDiagnosed DateMeal Tracking and Blood Sugar Monitoring 04/18/2025documented as of this encounter Care Teams Team MemberRelationshipSpecialtyStart DateEnd Date Promise Morley MD [address] [place] [address] PCP - GeneralFamily Medicine11/12/22documented as of this encounter
--- OUTSIDE RECORDS SUMMARY | 2025-04-19 15:30 | XMS_ITS | Encounter Summary ---
Author Organization [facility] Address [address] [place] [address] Care Team Providers Care Assessment Manager Name Role Phone Promise Morley MD Primary Care Provider [phone] Encounter Details DateTypeDepartmentCare Team (Latest Contact Info)Dkxrdmebtkn46/11/2025 3:30 PM ESTAncillary Procedure [facility] [address] [place] [phone] related condition in first trimester ([facility]); Obesity affecting in first trimester, unspecified obesity type ([facility]HS-HCC) Social History Tobacco UseTypesPacks/DayYears UsedDateSmoking Tobacco: NeverSmokeless Tobacco: NeverAlcohol UseStandard Drinks/WeekCommentsNever0 (1 standard drink = 0.6 oz pure alcohol)caffeine intake: 1 cup of h0Mqcwxrdnezh, Afraid, Rape, and Kick questionnaireAnswerDate RecordedWithin the [...] times a week01/02/2023How often do you attend rastafarian or congregational services?More than 4 times per year 01/02/2023o you belong to any clubs or organizations such as rastafarian groups, unions, fraSynqera or athletic groups, or school groups?Yes01/02/2023How often do you attend meetings of the clubs or organizations you belong to?More than 4 times per year01/02/2023re you , , , , never , or living with a partner?Dvgnmch9101/02/2023UDIT-CAnswerDate RecordedQ1: How often do you have a [...] hard at all01/02/2023HQ-2AnswerDate Recorded Patient Health Questionnaire-2 Gkpaw686[facility] [place] of Occup[facility] Health - Occupational Stress QuestionnaireAnswerDate [...] sleep or slept in ashelter (including now)?No 01/02/2023Estimated Date of NxdylotlZtxufzhoYtb96/08/2026ased on UltrasoundSex and Gender InformationValueDate RecordedSex Assigned at Ojrhqe3311/05/2022 8:35 AM EDTLegal VntChcpah85/15/2023 7:19 PM EDTGender Identity Bhjlil5611/05/2022 8:35 AM EDTSexual RtutiahoajgHsydgfyw23/30/2023 8:35 AM EDT documented as of this encounter Plan of Treatment DateTypeDepartmentCare Team (Latest Contact Info)Ikwqstoavzn83/16/2025 3:30 PM ESTRoutine [facility] [address] [place] [address] Loren Alvares DO [address] [place] [address] documented as of this encounter Goals GoalPatient Goal TypeAssociated ProblemsRecent ProgressPatient-Stated?Author Record Your Blood Sugar Daily Care PlanMeal Tracking and Blood Sugar MonitoringNoMarguerite Perez LPNdocumented as of this encounter Procedures Procedure NamePriorityDate/TimeAssociated DiagnosisCommentsUS OB < 14 WEEKS MMSJOMpecpxq71/11/2025 3:45 PM EST related condition in first trimester (HHS-HCC) Obesity affecting in first trimester, unspecified obesity type (HHS-HCC) documented in this encounter Results * US OB less than 14 weeks early (04/19/2025 3:45 PM EST)Anatomical Region LateralityModalityBodyUltrasoundStudy GAStudy DateStudy EDDWorking NIKKI (Source)505/04/2026 (Last Menstrual Period)Fetus A MeasurementsValue GA (days)CRLSac DiameterComposite GASpecimen (Source)Anatomical Location / LateralityCollection Method / VolumeCollection TimeReceived Time Narrative 04/21/2025 12:39 PM EST Table formatting from the original result was not included. Images from the original result were not included. ?? Obstetrics & Gynecology ? [address] ? [address] ? [address] ?[address], [facility] [address] ? [place] [address] [place] [address] ? - - - - - - - - - - - - - - - - - - - - - - - - - - - - - - - - - - - - - - - - - - - - - - - - - - - - - - - - - - - - - - - - - - ?Early Assessment Patient name: Dagmar Durbin : 2000 (25 y.o.) Date of exam: 04/19/25 - - - - - - - - - - - - - - - - - - - - - - - - - - - - - - - Indication: uncertain dates, spotting Surgical History: c/section Method: Transabdominal ultrasound examination View: Adequate - - - - - - - - - - - - - - - - - - - - - - - - - - - - - - - Type of gestation: Kumar Number of embryos: 1 - - - - - - - - - - - - - - - - - - - - - - - - - - - - - - - Dating: Method of dating: Date: Details: Gest Age: NIKKI: Assigned dating: LMP 01/10/25 ??14 w 1 d 10/17/25 [] Ultrasound 04/19/25 CRL ??10 w 1 d 11/14/25 [x] - - - - - - - - - - - - - - - - - - - - - - - - - - - - - - - Fetus: Gestational sac: visualized Location: Intrauterine Yolk sac: visualized Amniotic sac: visualized Embryo: visualized Cardiac activity: present FHR: 176 bpm - - - - - - - - - - - - - - - - - - - - - - - - - - - - - - - Maternal Structures: Uterus: Visualized Size: 10.8 x 7.9 x 7.0 cm ??Volume: 311.6 cm?? Appearance: normal in size and contour There is a 0.9 x 0.8 x 1.6 cm hypoechogenic area located adjacent to the gestational sac, felt to represent a subchorionic bleed. Right ovary: Visualized Size: 2.6 x 2.0 x 2.0 cm ??Volume: 5.6 cm?? Appearance: no cysts visualized No adnexal mass visualized Left ovary: Visualized Size: 2.7 x 2.3 x 1.8 cm ??Volume: 5.6 cm?? Appearance: The left ovary contains the corpus luteal cyst: thick-walled, mildly echogenic (2.0 x 1.5 x 1.6 cm) No adnexal mass visualized - - - - - - - - - - - - - - - - - - - - - - - - - - - - - - - - - - - - - - - - - - - - - - - - - - - - - - - - - - - - - - - - - - Impression: There is a single intrauterine measuring 10 w 1 d, which establishes an EDC of 11/14/2025. *Please note that a normal ultrasound does not rule out anomalies* - - - - - - - - - - - - - - - - - - - - - - - - - - - - - - - - - - - - - - - - - - - - - - - - - - - - - - - - - - - - - - - - - - Ordering/Reading Provider: Loren Alvares D.O. ??[employer] Professor: Barrie Mcrae RDMS Authorizing ProviderResult TypeResult StatusLoren Alvares DOI OB US PROCEDURESFinal Result documented in this encounter Visit Diagnoses Diagnosis related condition in first trimester (HHS-HCC) Obesity affecting in first trimester, unspecified obesity type (HHS-HCC) documented in this encounter Additional Health Concerns Active ProblemsNoted DateDiagnosed DateMeal Tracking and Blood Sugar Monitoring 04/18/2025documented as of this encounter Care Teams Team MemberRelationshipSpecialtyStart DateEnd Date Promise Morley MD [address] [place] [address] PCP - GeneralFamily Medicine11/12/22documented as of this encounter
--- OUTSIDE RECORDS SUMMARY | 2025-04-28 11:45 | XMS_ITS | Encounter Summary ---
Author Organization [facility] Address [address] [place] [address] Care Team Providers Care Bilingual Sales Assistant Name Role Phone Promise Morley MD Primary Care Provider [phone] Encounter Details DateTypeDepartmentCare Team (Latest Contact Info)Alwycvqireh83/20/2025 11:45 AM ESTInitial [facility] [address] [place] [address] Loren Alvares DO [address] [place] [address] GA: 11w3d Social History Tobacco UseTypesPacks/DayYears UsedDateSmoking Tobacco: NeverSmokeless Tobacco: NeverAlcohol UseStandard Drinks/WeekCommentsNever0 (1 standard drink = 0.6 oz pure alcohol)caffeine intake: 1 cup of o7Sbtnzxzouys, Afraid, Rape, and Kick questionnaireAnswerDate RecordedWithin the [...] times a week01/02/2023How often do you attend zoroastrianism or taoism services?More than 4 times per year 01/02/2023o you belong to any clubs or organizations such as zoroastrianism groups, unions, fraternal or athletic groups, or school groups?Yes01/02/2023How often do you attend meetings of the clubs or organizations you belong to?More than 4 times per year01/02/2023re you , , , , never , or living with a partner?Mddflyd2301/02/2023UDIT-CAnswerDate RecordedQ1: How often do you have a [...] hard at all01/02/2023HQ-2AnswerDate Recorded Patient Health Questionnaire-2 Egtcx385Finhigh[facility] [place] of Occupational Health - Occupational Stress QuestionnaireAnswerDate [...] steady place to sleep or slept in [facility] (including now)?No 01/02/2023Estimated Date of XpumwogfMscsaqtaXdn68/08/2026ased on UltrasoundSex and Gender InformationValueDate RecordedSex Assigned at Leavaz0211/05/2022 8:35 AM EDTLegal KowMbqlzj74/15/2023 7:19 PM EDTGender Identity Nmbqcc8311/05/2022 8:35 AM EDTSexual CvjwxdyuirgZjodfsnh12/30/2023 8:35 AM EDT documented as of this encounter Last Filed Vital Signs Vital SignReadingTime TakenCommentsBlood Wxtelgbr157/8404/28/2025 11:39 AM EST Pulse--Temperature--Respiratory Rate--Oxygen Saturation--Inhaled Oxygen Concentration--Eukteg516 kg (261 lb)04/28/2025 11:39 AM ESTHeight--Body Mass Index42.13107/06/2022 1:50 PM ESTdocumented in this encounter Progress Notes * Loren Alvares, DO - 04/28/2025 11:45 AM EST Urine N/N. C/o N/V. Denies concerns. Declines genetic testing. Discussed GDMA2 with last -will plan early 1hr Glucola with next appointment. Also discussed delivery- will plan RLTCS unless labor occurs prior to 39-40 weeks. documented in this encounter Plan of Treatment DateTypeDepartmentCare Team (Latest Contact Info)Solxtwvyuyq50/16/2025 3:30 PM ESTRoutine [facility] [address] [place] [address] Loren Alvares DO [address] [place] [address] documented as of this encounter Goals GoalPatient Goal TypeAssociated ProblemsRecent ProgressPatient-Stated?Author Record Your Blood Sugar Daily Care PlanMeal Tracking and Blood Sugar MonitoringMarguerite Oropeza LPNdocumented as of this encounter Procedures Procedure NamePriorityDate/TimeAssociated DiagnosisCommentsCEPHEID CT/NGRoutine 04/28/2025 4:10 PM EST Screen for sexually transmitted diseases POCT URINALYSIS 4 BKWDCCJFWmixuvt08/20/2025 11:41 AM EST 11 weeks gestation of ([facility]) documented in this encounter Results * CEPHEID CT/NG (04/28/2025 4:10 PM EST)ComponentValueRef RangeTest Method Analysis TimePerformed AtPathologist SignatureCHLAMYDIA CULTURENegNegative GONORRHOEAE DNA(PCR)NegNegatvieSpecimen (Source)Anatomical Location / LateralityCollection Method / VolumeCollection TimeReceived TimeVaginal Fluid 04/28/2025 4:10 PM EST Narrative Authorizing ProviderResult TypeResult StatusKatcharu Alvares DOPOINT OF CARE TEST ENTER/EDIT ORDERABLESEdited Result - Final * POCT URINALYSIS 4 DIPSTICK (04/28/2025 11:41 AM EST)ComponentValueRef Range Test MethodAnalysis TimePerformed AtPathologist SignatureGlucose, UANegative Negative - 2000(110) ++++ mg/dLProtein, UANegativeNegative - 1999(20) ++++ mg/dLSpecimen (Source)Anatomical Location / LateralityCollection Method / VolumeCollection TimeReceived TwhyPcjeq78/20/2025 11:41 AM EST Narrative Authorizing ProviderResult TypeResult StatusKathleen E Rinkes DOPOINT OF CARE TEST ENTER/EDIT ORDERABLESFinal Result documented in this encounter Visit Diagnoses Diagnosis 11 weeks gestation of ([facility]) Screen for sexually transmitted diseases Screening examination for venereal disease documented in this encounter Additional Health Concerns Active ProblemsNoted DateDiagnosed DateMeal Tracking and Blood Sugar Monitoring 04/18/2025documented as of this encounter Care Teams Team MemberRelationshipSpecialtyStart DateEnd Date Promise Morley MD [address] [place] [address] PCP - GeneralFamily Medicine11/12/22documented as of this encounter
--- OUTSIDE RECORDS SUMMARY | 2025-04-28 12:00 | XMS_ITS | Encounter Summary ---
Author Organization [facility] Address [address] [place] [address] Care Team Providers Care Inspector And Mender Name Role Phone Promise Morley MD Primary Care Provider [phone] Encounter Details DateTypeDepartmentCare Team (Latest Contact Info)Bgwreyxzogu51/20/2025 12:00 PM ESTAncillary Procedure [facility] [address] [place] [address] Unable to hear heart tones as reason for ultrasound scan ([facility] Social History Tobacco UseTypesPacks/DayYears UsedDateSmoking Tobacco: NeverSmokeless Tobacco: NeverAlcohol UseStandard Drinks/WeekCommentsNever0 (1 standard drink = 0.6 oz pure alcohol)caffeine intake: 1 cup of m5Okdjidhqaak, Afraid, Rape, and Kick questionnaireAnswerDate RecordedWithin the [...] times a week01/02/2023How often do you attend nondenominational or buddhist services?More than 4 times per year 01/02/2023o you belong to any clubs or organizations such as nondenominational groups, unions, AwayFind or athletic groups, or school groups?Yes01/02/2023How often do you attend meetings of the clubs or organizations you belong to?More than 4 times per year01/02/2023re you , , , , never , or living with a partner?Pdrsxqw9901/02/2023UDIT-CAnswerDate RecordedQ1: How often do you have a [...] hard at all01/02/2023HQ-2AnswerDate Recorded Patient Health Questionnaire-2 Sqwnd041Finintermountain medical center [place] of Occupational Health - Occupational Stress QuestionnaireAnswerDate [...] in ashelter (including now)?No 01/02/2023Estimated Date of TovnpkkbQxdfpqgxVkb93/08/2026Based on UltrasoundSex and Gender InformationValueDate RecordedSex Assigned at Htjcxq4311/05/2022 8:35 AM EDTLegal InrVvpjfn24/15/2023 7:19 PM EDTGender Identity Ncnizg6511/05/2022 8:35 AM EDTSexual FqudsnvywmqIyrwiguj22/30/2023 8:35 AM EDT documented as of this encounter Plan of Treatment DateTypeDepartmentCare Team (Latest Contact Info)Sehkawrbxeb53/16/2025 3:30 PM ESTRoutine [facility] [address] [place] [address] Loren Alvares DO [address] [place] [address] documented as of this encounter Goals GoalPatient Goal TypeAssociated ProblemsRecent ProgressPatient-Stated?Author Record Your Blood Sugar Daily Care PlanMeal Tracking and Blood Sugar MonitoringMarguerite Oropeza LPNdocumented as of this encounter Procedures Procedure NamePriorityDate/TimeAssociated DiagnosisCommentsUS OB LIMITED 1+ NYKCJXPFyntyxu98/20/2025 12:27 PM EST Unable to hear heart tones as reason for ultrasound scan ([facility]) documented in this encounter Results * OB limited 1+ fetuses (04/28/2025 12:27 PM EST)Anatomical RegionLaterality ModalityBodyUltrasoundStudy GAStudy DateStudy EDDWorking NIKKI (Source) /01/2026 (Ultrasound)Fetus A MeasurementsValueGA (days)CRLSac DiameterBiparietal DiameterHead CircumferenceAbdominal CircumferenceFemur LengthFetal Ulna LengthFetal Humerus LengthFetal Tibia LengthAmniotic Fluid Index Quadrant 1Amniotic Fluid Index Quadrant 2Amniotic Fluid Index Quadrant 3 Amniotic Fluid Index Quadrant 4Amniotic Fluid IndexDeep Vertical PocketUA SD RatioUA Resistance IndexUA Pulsatility IndexMCA SD RatioMCA Resistance Index MCA Pulsatility IndexHeart RateSpecimen (Source)Anatomical Location / LateralityCollection Method / VolumeCollection TimeReceived Time Narrative 04/28/2025 12:36 PM EST Table formatting from the original result was not included. Images from the original result were not included. ?? Obstetrics & Gynecology ? [address] ? [address] ? [address] ?[address], [facility] [address] ? [place] [address] ?[place] [address] ? - - - - - - [...] : 2000 (25 y.o.) Date of exam: 04/28/25 - - - - - - - - - - - - - - - - - - - - - - - - - - - - - - - Indication: obesity, inaudible doppler heart tones Surgical History: c/section Method: Transabdominal ultrasound examination View: Sufficient - - - - - - - - - - - - - - - - - - - - - - - - - - - - - - - Type of gestation: [place] Number of embryos: 1 - - - - - - - - - - - - - - - - - - - - - - - - - - - - - - - Dating: Method of dating: Date: Details: Gest Age: NIKKI: Assigned dating: Previous US ?? 11 w 3 d 11/14/25 [x] Ultrasound 04/28/25 CRL ??11 w 5 d 11/12/25 [] - - - - - - - - - - - - - - - - - - - - - - - - - - - - - - - Fetus: Gestational sac: visualized Location: Intrauterine Single intrauterine having normal cardiac and motion. ?? There is an adequate amount of amniotic fluid. Cardiac activity: present FHR: 171 bpm - - - - - - - - - - - - - - - - - - - - - - - - - - - - - - - Impression: Limited obstetric ultrasound shows a single intrauterine having normal cardiac and motion. ?? There is adequate interval growth since the prior ultrasound. *Please note that a normal ultrasound does [...] - - Ordering/Reading Provider: Loren Alvares D.O. ??Garden Worker: Barrie Mena RDMS Authorizing ProviderResult TypeResult StatusLoren Alvares [facility] US PROCEDURESFinal Result documented in this encounter Visit Diagnoses Diagnosis Unable to hear heart tones as reason for ultrasound scan ([facility]) Abnormality in heart rate/rhythm, antepartum condition or complication documented in this encounter Additional Health Concerns Active ProblemsNoted DateDiagnosed DateMeal Tracking and Blood Sugar Monitoring 04/18/2025documented as of this encounter Care Teams Team MemberRelationshipSpecialtyStart DateEnd Date Promise Morley MD [address] [place] [address] PCP - GeneralFamily Medicine11/12/22documented as of this encounter
[2025-05-02 10:43] VITALS: BP 147/99; PULSE 87; TEMP 37.1; O2SAT 100; BMI 42.1
[2025-05-02 11:09] LABS: Glucose Urine UA NEGATIVE (NEGATIVE)
[2025-05-02 11:17] LABS: SARS-CoV-2 Ag NEGATIVE (NEGATIVE)
[2025-05-02 11:28] LABS: Cast Seen? NONE SEEN #/LPF (NONE SEEN); Crystals Seen? None Seen #/HPF (None Seen)
[2025-05-02 11:31] LABS: Urine Culture Indicated YES-FRMC
--- NOTE | 2025-05-02 11:38 | ED_ITS ---
HPI HPI - General Adult General Chief complaint: Nausea/Vomiting/Diarrhea Stated complaint: FLU LIKE SYMPTOMS - 12 WEEKS PREG Time Seen by Provider: 05/02/25 11:33 Source: patient Mode of arrival: walk-in History of Present Illness HPI narrative: 25-year-old female presented to the emergency department for nausea vomiting and diarrhea for few days duration. She is worried about dehydration. She is , 12 weeks and was directed here by her building performance specialist. No hematemesis or blood in her diarrhea. Related Data Home Medications ?Medication ?Instructions ?Recorded ?Confirmed ondansetron HCl 4 mg tablet 4 mg PO Q6H PRN nausea and vomiting 05/02/25 05/02/25 Previous Rx's ?Medication ?Instructions ?Recorded ondansetron 4 mg disintegrating 4 mg PO Q6H PRN nausea and 05/02/25 tablet vomiting #20 tabs Allergies Allergy/AdvReac Type Severity Reaction Status Date / Time No Known Drug Allergies Allergy Verified 05/02/25 10:49 Review of Systems ROS Narrative A ten point review of systems is negative except as noted above. PFSH PFSH Social History Little interest or pleasure in doing things: not at all Feeling down, depressed, or hopeless: not at all Exam Narrative Exam Narrative: Nurses note and vital signs reviewed General:The patient appears well and in no apparent distress.Patient is resting comfortably on cart. Skin:Warm, dry, no pallor noted.There is no rash noted. Head:Normocephalic, atraumatic Eye: Normal conjunctiva, no drainage Ears, Nose, Mouth, and Throat: oral mucosa is moist. Nares patent. Cardiovascular:Regular Rate and Rhythm Respiratory:Patient is in no distress, no accessory muscle use, lungs are clear to auscultation, no wheezing, rales or rhonchi Back:non-tender GI: Soft and nontender Musculoskeletal: The patient has no evidence of calf tenderness, no pitting edema, symmetrical pulses noted bilaterally Neurological:A&O, normal speech Psychiatric:Cooperative Constitutional Vital Signs, click to edit/add: Last Vital Signs Temp 98.8 F 05/02/25 10:43 Pulse 87 05/02/25 10:43 Resp 18 05/02/25 10:43 BP 147/99 H 05/02/25 10:43 Pulse Ox 100 05/02/25 10:43 O2 Del Method Room Air 05/02/25 10:43 Course Vital Signs Vital signs: Vital Signs Temperature 98.8 F 05/02/25 10:43 Pulse Rate 87 05/02/25 10:43 Respiratory Rate 18 05/02/25 10:43 Blood Pressure 147/99 H 05/02/25 10:43 Pulse Oximetry 100 05/02/25 10:43 Oxygen Delivery Method Room Air 05/02/25 10:43 Temperature 98.8 F 05/02/25 10:43 Pulse Rate 87 05/02/25 10:43 Respiratory Rate 18 05/02/25 10:43 Blood Pressure 147/99 H 05/02/25 10:43 Pulse Oximetry 100 05/02/25 10:43 Oxygen Delivery Method Room Air 05/02/25 10:43 Medical Decision Making MDM Narrative Medical decision making narrative: Blood work is essentially normal. She was given IV fluids and Zofran and is able to be discharged home with a prescription for Zofran. Treatment diagnosis and follow-up were discussed with the patient. Differential Diagnosis Differential Diagnosis: Nausea and vomiting, dehydration, food poisoning Lab Data Lab results reviewed: Yes I reviewed the patient's lab results Labs: Lab Results 05/02/25 05/02/25 05/02/25 Range/Units 10:50 10:52 11:47 WBC 9.0 (4.0-11.0) 10^3/uL RBC 4.94 (4.20-5.40) 10^6/uL Hgb 14.7 (12.0-16.0) g/dL Hct 41.8 (36.0-48.0) % MCV 84.6 (81.0-99.0) fL MCH 29.8 (26.7-34.0) pg MCHC 35.2 (29.9-35.2) g/dL RDW 11.9 (11.0-15.0) % Plt Count 372 (150-450) 10^3/uL MPV 8.5 L (9.5-13.5) fL Neut % (Auto) 69.0 (43.0-75.0) % Lymph % (Auto) 23.2 (20.5-60.0) % Shoshone % (Auto) 6.7 (1.7-12.0) % Eos % (Auto) 0.6 L (0.9-7.0) % Baso % (Auto) 0.2 (0.2-2.0) % Neut # (Auto) 6.2 (1.4-6.5) 10^3/uL Lymph # (Auto) 2.1 (1.2-3.8) 10^3/uL Shoshone # (Auto) 0.6 (0.3-0.8) 10^3/uL Eos # (Auto) 0.1 (0.0-0.7) 10^3/uL Baso # (Auto) 0.0 (0.0-0.1) 10^3/uL Abs Immat Gran (auto) 0.03 (0.00-0.03) 10^3/uL Imm/Tot Granulo (auto) 0.3 (0.0-0.5) % Sodium 135 L (136-145) mmol/L Potassium 3.2 L (3.5-5.1) mmol/L Chloride 104 (98-107) mmol/L Carbon Dioxide 22.8 (21.0-32.0) mmol/L Anion Gap 11.4 BUN 6.0 L (7.0-18.0) mg/dL Creatinine 0.66 (0.55-1.02) mg/dL Est GFR ( Amer) >60 (>=60 mL/min/1.73m^2) Est GFR (Non-Af Amer) >60 (>=60 mL/min/1.73m^2) BUN/Creatinine Ratio 9.1 Glucose 99 (74-106) mg/dL Calcium 8.7 (8.5-10.1) mg/dL Urine Color Yellow (YELLOW) Urine Clarity Sl cloudy (CLEAR) Urine pH 6.0 (5.0-9.0) Ur Specific Cullen 1.020 (1.005-1.025) Urine Protein Negative (NEG/TRACE) mg/dL Urine Glucose (UA) Negative (NEGATIVE) mg/dL Urine Ketones Negative (NEGATIVE) mg/dL Urine Occult Blood Negative (NEGATIVE) Urine Nitrite Negative (NEGATIVE) Urine Bilirubin Negative (NEGATIVE) Urine Urobilinogen 0.2 (0.2-1.0) EU/dL Ur Leukocyte Esterase Trace A (NEGATIVE) Urine RBC None seen (0-2) #/HPF Urine WBC 2-5 A (NONE SEEN) #/HPF Ur Squamous Epith Cells Few A (NONE/RARE) #/LPF Urine Crystals None seen (None Seen) #/HPF Urine Bacteria Small A (NONE SEEN) #/HPF Urine Casts None seen (NONE SEEN) #/LPF Urine Mucus None seen (NONE SEEN) Ur Culture Indicated? Yes-[facility] Influenza Type A Ag Negative Influenza Type B Ag Negative SARS-CoV-2 Ag (CV2AG) Negative (NEGATIVE) Discharge Plan Discharge Chief Complaint: Nausea/Vomiting/Diarrhea Clinical Impression: Nausea & vomiting Patient Disposition: Home, Self-Care Time of Disposition Decision: 12:30 Condition: Good Mode of Transportation: Private Vehicle Prescriptions / Home Meds: New ondansetron 4 mg tablet,disintegrating 4 mg PO Q6H PRN (Reason: nausea and vomiting) Qty: 20 0RF No Action ondansetron HCl 4 mg tablet 4 mg PO Q6H PRN (Reason: nausea and vomiting) Print Language: Martiniquais Instructions: Acute Nausea and Vomiting (ED) Referrals: Promise Morley MD [Primary Care Provider, Family Practice] - 1 week
[2025-05-02] MEDS: 0.9 % SODIUM CHLORIDE 1,000 ML 1000 ML IV (11:50)
[2025-05-02 12:07] LABS: Anion Gap 11.4; Blood Urea Nitrogen 6.0 mg/dL (7.0-18.0); Calcium 8.7 mg/dL (8.5-10.1); Carbon Dioxide 22.8 mmol/L (21.0-32.0); Chloride 104 mmol/L (98-107); Estimated GFR (African America >60 (>=60 mL/min/1.73m^2); Estimated GFR (Non-African Ame >60 (>=60 mL/min/1.73m^2); Glucose 99 mg/dL (74-106); Hematocrit 41.8 % (36.0-48.0); Hemoglobin 14.7 g/dL (12.0-16.0); Immature Granulocytes Abs Auto 0.03 10^3/uL (0.00-0.03); Immature Granulocytes Pct Auto 0.3 % (0.0-0.5); Lymphocytes Absolute Auto 2.1 10^3/uL (1.2-3.8); Mean Corpuscular HGB Conc 35.2 g/dL (29.9-35.2); Mean Corpuscular Hemoglobin 29.8 pg (26.7-34.0); Mean Corpuscular Volume 84.6 fL (81.0-99.0); Platelet Count 372 10^3/uL (150-450); Potassium 3.2 mmol/L (3.5-5.1); Red Blood Count 4.94 10^6/uL (4.20-5.40); Sodium 135 mmol/L (136-145); White Blood Count 9.0 10^3/uL (4.0-11.0)
--- OUTSIDE RECORDS SUMMARY | 2025-05-02 12:07 | XMS_ITS | Encounter Summary ---
Author Organization [facility] Address [address] [facility] [place] [address] Care Team Providers Care Director Emergency Department Name Role Phone Promise Morley MD Primary Care Provider [phone] Encounter Details DateTypeDepartmentCare Team (Latest Contact Info)Sxqzeufzveh55/10/2025Travel Social History Tobacco UseTypesPacks/DayYears UsedDateSmoking Tobacco: NeverSmokeless Tobacco: NeverAlcohol UseStandard Drinks/WeekCommentsNever0 (1 standard drink = 0.6 oz pure alcohol)caffeine intake: 1 cup of z3Jrnyyxxlupa, Afraid, Rape, and Kick questionnaireAnswerDate RecordedWithin the [...] times a week01/02/2023How often do you attend sikh or mu-ism services?More than 4 times per year 01/02/2023o you belong to any clubs or organizations such as sikh groups, unions, fraternal or athletic groups, or school groups?Yes01/02/2023How often do you attend meetings of the clubs or organizations you belong to?More than 4 times per year01/02/2023re you , , , , never , or living with a partner?Ysiplej3801/02/2023UDIT-CAnswerDate RecordedQ1: How often do you have a [...] hard at all01/02/2023HQ-2AnswerDate Recorded Patient Health Questionnaire-2 Wvzvm140Fin[facility] [place] of Occupational Health - Occupational Stress QuestionnaireAnswerDate [...] you didn't have money to get more.Never true07/27/2023PRAPARE - TransportationAnswerDate RecordedIn the past 12 months, [...] steady place to sleep or slept in [place] (including now)?No 01/02/2023Estimated Date of UhdkewynJsgtxmcfFje59/08/2026Based on UltrasoundSex and Gender InformationValueDate RecordedSex Assigned at Agphhn2311/05/2022 8:35 AM EDTLegal MqmNbzxji72/15/2023 7:19 PM EDTGender Identity Uznllv2011/05/2022 8:35 AM EDTSexual YlxernxtbhtTzmoxzpe40/30/2023 8:35 AM EDT documented as of this encounter Plan of Treatment DateTypeDepartmentCare Team (Latest Contact Info)Aeqdudadwox39/16/2025 3:30 PM ESTRoutine [facility] [address] [place] [phone] Loren Alvares DO [address] [place] [address] documented as of this encounter Goals GoalPatient Goal TypeAssociated ProblemsRecent ProgressPatient-Stated?Author Record Your Blood Sugar Daily Care PlanMeal Tracking and Blood Sugar MonitoringMarguerite Oropeza LPNdocumented as of this encounter Visit Diagnoses Not on filedocumented in this encounter Additional Health Concerns Active ProblemsNoted DateDiagnosed DateMeal Tracking and Blood Sugar Monitoring 04/18/2025documented as of this encounter Care Teams Team MemberRelationshipSpecialtyStart DateEnd Date Promise Morley MD [address] [place] [address] PCP - GeneralFamily Medicine11/12/22documented as of this encounter
--- OUTSIDE RECORDS SUMMARY | 2025-05-02 12:07 | XMS_ITS | Encounter Summary ---
Author Organization [facility] Address [address] [facility] [place] [address] Care Team Providers Care Shake Maker Name Role Phone Promise Morley MD Primary Care Provider [phone] Encounter Details DateTypeDepartmentCare Team (Latest Contact Info)Ibdrpidjcbp53/20/2025Travel Social History Tobacco UseTypesPacks/DayYears UsedDateSmoking Tobacco: NeverSmokeless Tobacco: NeverAlcohol UseStandard Drinks/WeekCommentsNever0 (1 standard drink = 0.6 oz pure alcohol)caffeine intake: 1 cup of h9Ybxbhgscnra, Afraid, Rape, and Kick questionnaireAnswerDate RecordedWithin the [...] week01/02/2023How often do you attend rastafarian or restoration services?More than 4 times per year 01/02/2023o you belong to any clubs or organizations such as rastafarian groups, unions, fraternal or athletic groups, or school groups?Yes01/02/2023How often do you attend meetings of the clubs or organizations you belong to?More than 4 times per year01/02/2023re you , , , , never , or living with a partner?Itbysge9401/02/2023UDIT-CAnswerDate RecordedQ1: How often do you have a [...] hard at all01/02/2023HQ-2AnswerDate Recorded Patient Health Questionnaire-2 Achto121[facility] [place] of Occupational Health - Occupational Stress QuestionnaireAnswerDate [...] steady place to sleep or slept in [place] (including now)?No 01/02/2023Estimated Date of FiznmktgZnhrgqidEmf13/08/2026Based on UltrasoundSex and Gender InformationValueDate RecordedSex Assigned at Etrnrq5111/05/2022 8:35 AM EDTLegal CudJtflti16/15/2023 7:19 PM EDTGender Identity Jonsya0511/05/2022 8:35 AM EDTSexual ZnsxxmbzdloPgkygiyv48/30/2023 8:35 AM EDT documented as of this encounter Plan of Treatment DateTypeDepartmentCare Team (Latest Contact Info)Sgsgguoiwwd05/16/2025 3:30 PM ESTRoutine [facility] [address] [place] [phone] Loren Alvares DO [address] [place] [address] documented as of this encounter Goals GoalPatient [...] Morley MD [address] [place] [address] PCP - GeneralFamily Medicine11/12/22documented as of this encounter
--- OUTSIDE RECORDS SUMMARY | 2025-05-02 12:07 | XMS_ITS | Encounter Summary ---
Author Organization [facility] Address [address] [facility] [place] [address] Care Team Providers Care Electroplating Sales Representative Name Role Phone Promise Morley MD Primary Care Provider [phone] Encounter Details DateTypeDepartmentCare Team (Latest Contact Info)Zhxrjawyxtu62/11/2025Travel Social History Tobacco UseTypesPacks/DayYears UsedDateSmoking Tobacco: NeverSmokeless Tobacco: NeverAlcohol UseStandard Drinks/WeekCommentsNever0 (1 standard drink = 0.6 oz pure alcohol)caffeine intake: 1 cup of s6Qnftrnnovkg, Afraid, Rape, and Kick questionnaireAnswerDate RecordedWithin the [...] times a week01/02/2023How often do you attend pentecostalism or hoahaoism services?More than 4 times per year 01/02/2023o you belong to any clubs or organizations such as pentecostalism groups, unions, fraternal or athletic groups, or school groups?Yes01/02/2023How often do you attend meetings of the clubs or organizations you belong to?More than 4 times per year01/02/2023re you , , , , never , or living with a partner?Qyumeof3201/02/2023UDIT-CAnswerDate RecordedQ1: How often do you have a [...] hard at all01/02/2023HQ-2AnswerDate Recorded Patient Health Questionnaire-2 Klbkp504F[facility] [place] of Occupational Health - Occupational Stress QuestionnaireAnswerDate [...] steady place to sleep or slept in [place] (including now)?No 01/02/2023Estimated Date of EkiqxesbJipchexpEjt67/08/2026Based on UltrasoundSex and Gender InformationValueDate RecordedSex Assigned at Ecvfna5011/05/2022 8:35 AM EDTLegal BvcKwirue85/15/2023 7:19 PM EDTGender Identity Upxsbj0911/05/2022 8:35 AM EDTSexual VgjyanzehxbXvsudznp75/30/2023 8:35 AM EDT documented as of this encounter Plan of Treatment DateTypeDepartmentCare Team (Latest Contact Info)Dudmkaqfzeh99/16/2025 3:30 PM ESTRoutine [facility] [address] [place] [phone] Loren Alvares DO [address] [place] [address] documented as of this encounter Goals GoalPatient [...] Morley MD [address] [place] [address] PCP - GeneralFamily Medicine11/12/22documented as of this encounter
--- OUTSIDE RECORDS SUMMARY | 2025-05-02 12:07 | XMS_ITS | Encounter Summary ---
Author Organization [facility] Address [address] [facility] [place] [address] Care Team Providers Care Exhibitions Curator Name Role Phone Promise Morley MD Primary Care Provider [phone] Encounter Details DateTypeDepartmentCare Team (Latest Contact Info)Urdugthsfww84/10/2025Telephone [facility] [facility] [address] [facility] [address] [place] [phone] Marguerite Perez LPN Social History Tobacco UseTypesPacks/DayYears UsedDateSmoking Tobacco: NeverSmokeless Tobacco: NeverAlcohol UseStandard Drinks/WeekCommentsNever0 (1 standard drink = 0.6 oz pure alcohol)caffeine intake: 1 cup of t3Eqxqamelgwq, Afraid, Rape, and Kick questionnaireAnswerDate RecordedWithin the [...] week01/02/2023How often do you attend pentecostalism or scientology services?More than 4 times per year 01/02/2023o you belong to any clubs or organizations such as pentecostalism groups, unions, fraternal or athletic groups, or school groups?Yes01/02/2023How often do you attend meetings of the clubs or organizations you belong to?More than 4 times per year01/02/2023re you , , , , never , or living with a partner?Qhxsgxn1401/02/2023UDIT-CAnswerDate RecordedQ1: How often do you have a [...] hard at all01/02/2023HQ-2AnswerDate Recorded Patient Health Questionnaire-2 Hkuea082Fin[facility] [place] of Occupational Health - Occupational Stress QuestionnaireAnswerDate [...] in [place]helter (including now)?No 01/02/2023Estimated Date of JatgmudrNlsghercAjn76/08/2026ased on UltrasoundSex and Gender InformationValueDate RecordedSex Assigned at Lhyovc5611/05/2022 8:35 AM EDTLegal DmzOcsowd55/15/2023 7:19 PM EDTGender Identity Aitwcq0411/05/2022 8:35 AM EDTSexual FqbjmpwqnyiIdjsufer77/30/2023 8:35 AM EDT documented as of this encounter Miscellaneous Notes * Telephone Encounter - Marguerite Perez LPN - 04/19/2025 3:54 PM EST Pt in for [place]. Dating changed. Rescheduled for NOB on 04/28/25. * Telephone Encounter - Marguerite Perez LPN - 04/19/2025 8:07 AM EST Called and spoke with pt regarding NOB. Pt unsure if time and date would work but asking to hold spot until US 1:45 today. Appt scheduled - Will adjust if necessary * Telephone Encounter - Verenice Beltrán MA - 04/19/2025 7:18 AM EST This 04/21/25 @ 1:45pm for NOB, Thank you * Telephone Encounter - Marguerite Perez LPN - 04/18/2025 9:12 AM EST Pt needs scheduled for NOB. No availability for next 3 weeks. Please advise. Pt in for [place] 04/19/25 at 1530 documented in this encounter Plan of Treatment DateTypeDepartmentCare Team (Latest Contact Info)Kjjkphjnehw83/16/2025 3:30 PM ESTRoutine [facility] [facility] [address] [place] [address] Loren Alvares DO [address] [place] [address] documented as of this encounter Goals GoalPatient [...] Promise Morley MD [address] [place] [address] PCP - GeneralFamily Medicine11/12/22documented as of this encounter
--- OUTSIDE RECORDS SUMMARY | 2025-05-02 12:07 | XMS_ITS | Clinical Summary ---
Author Organization [facility] Address [address] [place] [address] Care Team Providers Care Forging Operator Name Role Phone Promise Morley MD Primary Care Provider [phone] Allergies No known active allergies Medications MedicationSigDispense QuantityRefillsLast FilledStart DateEnd DateStatus ondansetron (Zofran) 4 MG tablet Indications:Nausea and vomiting during ([facility])Take 1 tablet (4 mg) by mouth every 6 (six) hours if needed for nausea or vomiting 30 tablet 515Active multivitamin () 27-0.8 MG tablet Indications: examination or test, positive result ([facility])Take 1 tablet by mouth Daily 30 tablet 5Active multivitamin () 27-0.8 MG tablet Take 1 tablet by mouth Daily05/02/2025Discontinued(Reorder) Active Problems ProblemNoted DateDiagnosed DateGestational diabetes mellitus (GDM) in third trimester ([facility])01/06/2023 Assessment & Plan (03/01/2023 10:08 AM [...] check blood glucose after delivery about once amonth to make sure glucose is not increasing [...] Will follow up as needed. Dysfunctional uterine zntuioei54/30/2023Impingement syndrome of left shoulder 11/05/2022Infective otitis zzulykd5611/05/2022Internal derangement of left /30/2023ain in left /30/2023arotid mass11/05/2022 Estimated Date of KnbyqcmxDiycxfveDwt94/08/2026ased on Ultrasound Encounters DateTypeDepartmentCare RcbaPjnlwowvtul09/24/2025Telephone [facility] [address] [place] [address] Marguerite Perez LPN 04/28/2025 12:00 PM ESTAncillary Procedure [facility] [address] [place] [address] Unable to hear heart tones as reason for ultrasound scan ([facility]) 04/28/2025 11:45 AM ESTInitial [facility] [place] [facility] [address] [place] [address] Loren Alvares, DO [place]: 79x1s1304/28/2025amboo flowsheet [facility] [address] [place] [address] Loren Alvares, 04/28/20255237Ckxqzl05/11/2025 3:30 PM ESTAncillary Procedure [facility] [address] [place] [address] related condition in first trimester ([facility]); Obesity affecting in first trimester, unspecified obesity type ([facility])04/19/20252091Rfjvhb95/10/2025 8:30 AM ESTInitial [facility] [place] [facility] [address] [place] [address] [place]: 46k7p2706/18/2024Telephone [facility] [address] [place] [address] Marguerite Perez LPN 04/18/20250466Kwcvtf87/03/2025Telephone [facility] [address] [place] [address] Loren Alvares, DO from Last 3 Months Immunizations ImmunizationAdministration DatesNext DueDTaP, Iitjiezyacb59/17/2005,10/21/2000, 1999,1999,1999HPV, Crzidtcrugah80/19/2012,08/27/2011HPV, Srkjtvwqvmu67/16/2012Hep A, ped/adol, 2 dose03/24/2012,08/27/2011Hep B, Adolescent or Qxuxnlkwh68/11/2000,1999,1999HiB, unspecified 03/21/2000,1999,1999,1999IPV08/23/2004Influenza, live, gnpzragphy04/28/2009Influenza, seasonal, iagfdizoxa93/13/2005,02/28/2004MMR 08/23/2004,03/21/2000Meningococcal ARB5V4902/06/2017Meningococcal LNF8U3108/27/2011 Novel Aqjvnncot-X2Y8-93, nasal04/11/2009Polio, Tgdsmcitixv66/15/2001,1999, 1999Tdap11/23/2019,08/27/20117184Untoplmiw56/20/2012,03/21/2000 Family History Medical HistoryRelationNameCommentsSleep apneaBrotherHypertensionFatherSleep apneaFatherSleep apneaMaternal GrandfatherSleep apneaMaternal GrandmotherAsthma MotherDiabetesMotherHypertensionMotherSleep apneaMotherSleep apneaPaternal GrandfatherLeukemiaPaternal GrandmotherNo Known ProblemsSisterRelationNameStatus CommentsBrother2 brothersFatherAliveMaternal GrandfatherAliveMaternal GrandmotherAliveMotherAlivePaternal GrandfatherAlivePaternal GrandmotherDeceased Sister1 sister Social History Tobacco UseTypesPacks/DayYears UsedDateSmoking Tobacco: NeverSmokeless Tobacco: Never Tobacco Cessation:Counseling Given: Not Answered Alcohol UseStandard Drinks/WeekCommentsNever0 (1 standard drink = 0.6 oz pure alcohol)caffeine intake: 1 cup of b0Aodbttsfldq, Afraid, Rape, and Kick questionnaireAnswerDate RecordedWithin the [...] times a week01/02/2023How often do you attend anglican or pentecostalism services?More than 4 times per year 01/02/2023o you belong to any clubs or organizations such as anglican groups, unions, fraternal or athletic groups, or school groups?Yes01/02/2023How often do you attend meetings of the clubs or organizations you belong to?More than 4 times per year01/02/2023re you , , , , never , or living with a partner?Mtbyinx7801/02/2023UDIT-CAnswerDate RecordedQ1: How often do you have a [...] hard at all01/02/2023HQ-2AnswerDate Recorded Patient Health Questionnaire-2 [facility] [place] Occupational Health - Occupational Stress QuestionnaireAnswerDate [...] steady place to sleep or slept in [facility] (including now)?No 01/02/2023Estimated Date of LxhovsvsWjylurxyMri00/08/2026Based on UltrasoundSex and Gender InformationValueDate RecordedSex Assigned at Frlxwo3411/05/2022 8:35 AM EDTLegal PoxIiopxo26/15/2023 7:19 PM EDTGender Identity Bipfeh1611/05/2022 8:35 AM EDTSexual BeualqkibytJgcdnwzb16/30/2023 8:35 AM EDT Last Filed Vital Signs Vital SignReadingTime TakenCommentsBlood Zigjuoyx813/8411 11:39 AM EST Iontg566002/28/2023 3:08 PM QJJVfdaemztbbr06.8 ??C (98.2 ??F)02/28/2023 3:08 PM EDTRespiratory Rate--Oxygen Qkrizjcptl38%02/28/2023 3:08 PM EDTInhaled Oxygen Concentration--Xjfxpa276 kg (261 lb)04/28/2025 11:39 AM TVMLzppvq881.6 cm (5' 6 )05/06/2023 1:50 PM ESTBody Mass Index42.13107/06/2022 1:50 PM EST Plan of Treatment DateTypeDepartmentCare Team (Latest Contact Info)Pkhqrdibxzj29/16/2025 3:30 PM ESTRoutine [facility] [place] [facility] [address] [place] [address] Loren Alvares DO [address] [place] [address] Goals GoalPatient Goal TypeAssociated ProblemsRecent ProgressPatient-Stated?Author Record Your Blood Sugar Daily Care PlanMeal Tracking and Blood Sugar MonitoringMarguerite Oropeza LPN Procedures Procedure NamePriorityDate/TimeAssociated DiagnosisCommentsCEPHEID CT/NGRoutine 04/28/2025 4:10 PM EST Screen for sexually transmitted diseases US OB LIMITED 1+ CXQBVKCEyonaup18/20/2025 12:27 PM EST Unable to hear heart tones as reason for ultrasound scan ([facility]) POCT URINALYSIS 4 EMJFUIERWirsmyj99/20/2025 11:41 AM EST 11 weeks gestation of ([facility]) US OB < 14 WEEKS MACDHIgnkfce28/11/2025 3:45 PM EST related condition in first trimester ([facility]) Obesity affecting in first trimester, unspecified obesity type ([facility]) URINE CULTURE CLEAN CATCH KWEIYRSfikmoo86/10/2025 9:19 AM EST UR MICROSCOPIC ELFYJSQkamzjq08/10/2025 9:19 AM EST RPR (DX) W/REFL TITER AND CONFIRMATORY MWXXCESEwoneua39/10/2025 9:19 AM EST care, subsequent in first trimester ([facility]) HYPERCOAG PANEL QKRRDIHzxdiom49/10/2025 9:19 AM EST care, subsequent in first trimester ([facility]) DRUG SCREEN 17 W/CONF, ABIsurtbq27/10/2025 9:19 AM EST Encounter for drug screening HEPATITIS C HOXWHONIAvahdtm58/10/2025 9:19 AM EST care, subsequent in first trimester ([facility]) BLOOD TYPE AND YYTSRSEkhnzaa28/10/2025 9:19 AM EST care, subsequent in first trimester ([facility]) HEPATITIS B SURFACE ANTIGEN W/REFL AGIDTKNXmsmkmo44/10/2025 9:19 AM EST care, subsequent in first trimester ([facility]) RUBELLA AB (IGG), IMMUNE WGLEQGEdtqezu51/10/2025 9:19 AM EST care, subsequent in first trimester ([facility]) CBC (INCLUDES DIFF/PLT)Lgcyibv2404/18/2025 9:19 AM EST care, subsequent in first trimester ([facility]) URINALYSIS, COMPLETE W/KHHENWGLMVFcqiokv26/10/2025 9:19 AM EST care, subsequent in first trimester ([facility]) CULTURE, URINE, BEGIWPEGzwaple10/10/2025 9:19 AM EST care, subsequent in first trimester ([facility]) from Last 3 Months Results * CEPHEID CT/NG (04/28/2025 4:10 PM EST)ComponentValueRef RangeTest Method Analysis TimePerformed AtPathologist SignatureCHLAMYDIA CULTURENegNegative GONORRHOEAE DNA(PCR)NegNegatvieSpecimen (Source)Anatomical Location / LateralityCollection Method / VolumeCollection TimeReceived TimeVaginal Fluid 04/28/2025 4:10 PM EST Narrative Authorizing ProviderResult TypeResult StatusKatcharu Alvares DOPOINT OF CARE TEST ENTER/EDIT ORDERABLESEdited Result - Final * US OB limited 1+ fetuses (04/28/2025 12:27 PM [...] ?? Obstetrics & Gynecology ? [address] ? [address] ? [address] ?[address], [facility] [address] ? [place] [address] [place] [address] ? - - - - - - [...] - - Ordering/Reading Provider: Loren Alvares D.O. ??Shellfish Shucker: Barrie Mena RDMS Authorizing ProviderResult TypeResult StatusLoren Alvares [facility] OB US PROCEDURESFinal Result * POCT URINALYSIS 4 DIPSTICK (04/28/2025 11:41 AM EST)ComponentValueRef Range Test MethodAnalysis TimePerformed AtPathologist SignatureGlucose, UANegative Negative - 1999(110) ++++ mg/dLProtein, UANegativeNegative - 1999(20) ++++ mg/dLSpecimen (Source)Anatomical Location / LateralityCollection Method / VolumeCollection TimeReceived VuchBqmju37/20/2025 11:41 AM EST Narrative Authorizing ProviderResult TypeResult StatusLoren Alvares DOPOINT OF CARE TEST ENTER/EDIT ORDERABLESFinal Result * US OB less than 14 weeks early (04/19/2025 3:45 PM EST)Anatomical Region LateralityModalityBodyUltrasoundStudy GAStudy DateStudy EDDWorking NIKKI (Source)/04/2026 (Last Menstrual Period)Fetus A MeasurementsValue GA (days)CRLSac DiameterComposite GASpecimen (Source)Anatomical Location / LateralityCollection Method / VolumeCollection TimeReceived Time Narrative 04/21/2025 12:39 PM EST Table formatting from the original result was not included. Images from the original result were not included. ?? Obstetrics & Gynecology ? [address] ? [address] ? [address] ?[address], [facility] [address] ? [place] [address] ?[place] [address] ? - - - - - - [...] - - Ordering/Reading Provider: Loren Alvares D.O. ??Shellfish Shucker: Barrie Mcrae RDMS Authorizing ProviderResult TypeResult StatusLoren Alvares DOIMG OB US PROCEDURESFinal Result * DRUG SCREEN 17 W/CONF, UR (04/18/2025 9:19 AM EST)ComponentValueRef RangeTest MethodAnalysis TimePerformed AtPathologist VpwbnvtahBIISMLJKWD35>=20 mg/dL [facility]ABCORPComment:REFERENCE RANGE: Ref Range>=20ETHANOL BIOMARKERS IANegative [...] [facility] - 04/20/2025 11:06 PM EST Test(s) 231306-SQRXOHD BIOMARKERS [place]; 635031-FFUANXTG IA was developed and its performance characteristics determined by [facility]. It has not been cleared or approved by the Food and Drug Administration. Performed at: ??01 - [facility] [address] ??[id number] Catalogue Librarian: Yessenia Quan PhrPA, Phone: ??[phone] Authorizing ProviderResult TypeResult StatusKathleen E Rinkes DOLAB BLOOD ORDERABLESFinal ResultPerforming OrganizationAddressCity/State/[facility] CodePhone Number [facility] * Urine Culture Clean Catch Reflex (04/18/2025 9:19 AM EST)ComponentValueRef RangeTest MethodAnalysis TimePerformed AtPathologist SignatureUr Cult 1No growthLABCORPSpecimen (Source)Anatomical Location / LateralityCollection Method / VolumeCollection TimeReceived Time04/18/2025 9:19 AM EST04/18/2025 Narrative [facility] - 04/20/2025 11:06 PM EST Performed at: 02 - [address] ??[id number] Catalogue Librarian: Manuel Sullivan PhD, Phone: ??[phone] Authorizing ProviderResult TypeResult StatusKathleen E Rinkes DOLAB URINE ORDERABLESFinal ResultPerforming OrganizationAddressCity/State/ZIP CodePhone Number [facility] * (ABNORMAL) Ur Microscopic Reflex (04/18/2025 9:19 AM EST)ComponentValueRef RangeTest MethodAnalysis TimePerformed AtPathologist SignatureWBC Ur11-30(A)0 - 5 /hpfLABCORPRBC UrNone seen0 - 2 /hpfLABCORPEpithelial Cells (non renal) Ur 0-100 - 10 /hpfLABCORPCasts UrNone seenNone seen /lpfLABCORPBacteria Ur Moderate(A)None seen/FewLABCORPSpecimen (Source)Anatomical Location / LateralityCollection Method / VolumeCollection TimeReceived Time04/18/2025 9:19 AM EST04/18/2025 Narrative [facility] - 04/20/2025 11:06 PM EST Performed at: [address] ??[id number] Catalogue Librarian: Manuel Sullivan PhD, Phone: ??[phone] Authorizing ProviderResult TypeResult StatusKathleen E Rinkes DOLAB URINE ORDERABLESFinal ResultPerforming OrganizationAddressty/State/ZIP CodePhone Number [facility] * Rpr (dx) w/refl titer and confirmatory testing (04/18/2025 9:19 AM EST) ComponentValueRef RangeTest MethodAnalysis TimePerformed AtPathologist SignatureRPRNon ReactiveNon ReactiveLABCORPSpecimen (Source)Anatomical Location / LateralityCollection Method / VolumeCollection TimeReceived Time BloodVenous blood specimen / Akwwanx6304/18/2025 9:19 AM EST04/18/2025 Narrative [facility] - 04/20/2025 11:06 PM EST Performed at: [address] ??[id number] Catalogue Librarian: Manuel Sullivan PhD, Phone: ??[phone] Authorizing ProviderResult TypeResult StatusKatcharu Alvares DOLAB BLOOD ORDERABLESFinal ResultPerforming OrganizationAddressty/State/ZIP CodePhone Number [facility] [...] Volume Collection TimeReceived TimeBloodVenous blood specimen / Myxnraw7504/18/2025 9:19 AM EST04/18/2025 Narrative [facility] - 04/20/2025 11:06 PM EST Performed at: [address] ??[id number] Catalogue Librarian: Manuel Sullivan PhD, Phone: ??[phone] Authorizing ProviderResult TypeResult StatusKatcharu KEMPAB BLOOD ORDERABLESFinal ResultPerforming OrganizationAddressty/State/ZIP CodePhone Number [facility] * HIV-2 antigen (04/18/2025 9:19 AM EST)ComponentValueRef RangeTest Method Analysis TimePerformed AtPathologist SignatureHIV Scr 4th GenNon ReactiveNon ReactiveLABCORPComment: HIV-1/HIV-2 antibodies and HIV-1 p24 antigen were NOT detected. There is no laboratory evidence of HIV infection. HIV Negative Specimen (Source)Anatomical Location / LateralityCollection Method / Volume Collection TimeReceived TimeBloodVenous blood specimen / Fbokypv2404/18/2025 9:19 AM EST04/18/2025 Narrative [facility] - 04/20/2025 11:06 PM EST Performed at: [address] [place] [address] ??[id number] Catalogue Librarian: Manuel Sullivan PhD, Phone: ??[phone] Authorizing ProviderResult TypeResult StatusKatcharu PIRES BLOOD ORDERABLESFinal ResultPerforming OrganizationAddressCity/State/ZIP CodePhone Number [facility] * Rubella antibody, IgG (04/18/2025 9:19 AM EST)ComponentValueRef RangeTest MethodAnalysis TimePerformed AtPathologist SignatureRubella IgG Abs5.51Immune >0.99 indexLABCORPComment: Non-immune <0.90 ?Equivocal ??0.90 - 0.99 Immune >0.99 Specimen (Source)Anatomical Location / LateralityCollection Method / Volume Collection TimeReceived TimeBloodVenous blood specimen / Gxouxdb6704/18/2025 9:19 AM EST04/18/2025 Narrative [facility] - 04/20/2025 11:06 PM EST Performed at: [address] [place] [address] ??[id number] Catalogue Librarian: Manuel Sullivan PhD, Phone: ??[phone] Authorizing ProviderResult TypeResult StatusKathelen keller hospital E MarianaEuroling DOLAB BLOOD ORDERABLESFinal ResultPerforming OrganizationAddressCity/State/ZIP CodePhone Number [facility] * Hepatitis B surface antigen (04/18/2025 9:19 AM EST)ComponentValueRef Range Test MethodAnalysis TimePerformed AtPathologist SignatureHep B Surf Ag Scr NegativeNegativeLABCORPSpecimen (Source)Anatomical Location / Laterality Collection Method / VolumeCollection TimeReceived TimeBloodVenous blood specimen / Ctxunge4304/18/2025 9:19 AM EST04/18/2025 Narrative [facility] - 04/20/2025 11:06 PM EST Performed at: [address] [place] [address] ??[id number] Catalogue Librarian: Manuel Sullivan PhD, Phone: ??[phone] Authorizing ProviderResult TypeResult StatusKathelen keller hospital E Giorgio DOL BLOOD ORDERABLESFinal ResultPerforming OrganizationAddressCity/State/ZIP CodePhone Number [facility] * (ABNORMAL) Urinalysis with microscopic (04/18/2025 9:19 AM EST)ComponentValue Ref RangeTest MethodAnalysis TimePerformed AtPathologist SignatureSpecific [place] Urine1.0051.005 - 1.030LABCORPpH Urine6.55.0 - 7.5LABC[facility]PColor Urine YellowYellowLABCORPAppearance UrineClearClearLABCORPWBC Esterase Urine1+(A) NegativeLABCORPProtein UrineNegativeNegative/TraceLABCORPGlucose UrineNegative NegativeLABCORPKetones UrineNegativeNegativeLABCORPOccult Blood UrineTrace(A) NegativeLABCORPBilirubin UrineNegativeNegativeLABCORPUrobilinogen,Semi-Qn Urine0.20.2 - 1.0 mg/dLLABCORPNitrite UrineNegativeNegativeLABCORPUr MicroscopicSee below:[facility]ABCORPComment:Microscopic was indicated and was performed.Specimen (Source)Anatomical Location / LateralityCollection Method / VolumeCollection TimeReceived TimeUrineUrine specimen obtained by clean catch procedure / Ktcmtlu6704/18/2025 9:19 AM EST04/18/2025 Narrative [facility] - 04/20/2025 11:06 PM EST Performed at: 02 - [facility], [place], [place] ??[id number] Catalogue Librarian: Manuel Sullivan PhD, Phone: ??[phone] Authorizing ProviderResult TypeResult StatusKatcharu Alvares DOLAB URINE ORDERABLESFinal ResultPerforming OrganizationAddressCity/State/ZIP CodePhone Number [facility] * (ABNORMAL) CBC and differential (04/18/2025 9:19 AM EST)ComponentValueRef RangeTest MethodAnalysis TimePerformed AtPathologist SignatureWBC9.53.4 - 10.8 x10E3/uLLABCORPRBC5.023.77 - 5.28 x10E6/cTVBZTGGIAzv43.911.1 - 15.9 g/dL IEMNWNSVvw80.834.0 - 46.6 %ARHLQOLUYT9817 - 97 dUQOTIDNKAOD97.726.6 - 33.0 pg NQEQMALICUD99.331.5 - 35.7 g/mPKYNPZNHKGQ36.811.7 - 15.4 %MFOBQMLMmnblzjnh868 (H)150 - 450 x10E3/mPSSRPPYMDfogjdpwqla17Upt Estab. %AGDJZGYDmchsl89Uky Estab. %JIKTYGCQmergfsnq1Swk Estab. %RIKSPSKMml0Gmc Estab. %YNPBSCEUpfhy7Umx Estab. %LABCORPNeutrophils Abs6.31.4 - 7.0 x10E3/uLLABCORPLymphs Abs2.40.7 - 3.1 x10E3/uLLABCORPMonocytesAbs0.70.1 - 0.9 x10E3/uLLABCORPEos Abs0.20.0 - 0.4 x10E3/uLLABCORPBaso Abs0.00.0 - 0.2 x10E3/uLLABCORPImmature Lbuysomvrmhd8Buj Estab. %LABCORPImmature Grans Abs0.00.0 - 0.1 x10E3/uLLABCORPSpecimen (Source) Anatomical Location / LateralityCollection Method / VolumeCollection Time Received TimeBloodVenous blood specimen / Pmgjzkq1304/18/2025 9:19 AM EST 04/18/2025 Narrative [facility] - 04/20/2025 11:06 PM EST Performed at: 02 - [facility] ??[id number] Catalogue Librarian: Manuel Sullivan PhD, Phone: ??[phone] Authorizing ProviderResult TypeResult StatusKathleen E Rinkes DOLAB BLOOD ORDERABLESFinal ResultPerforming OrganizationAddressCity/State/ZIP CodePhone Number [facility] * Type and screen (04/18/2025 9:19 AM EST)ComponentValueRef RangeTest Method Analysis TimePerformed AtPathologist SignatureABO GroupingOLABCORPRh Factor PositiveLABCORPComment: Please note: Prior records for this patient's ABO / Rh type are not available for additional verification. Antibody ScreenNegativeNegativeLABCORPSpecimen (Source)Anatomical Location / LateralityCollection Method / VolumeCollection TimeReceived TimeBloodVenous blood specimen / Athfqnc3804/18/2025 9:19 AM EST04/18/2025 Narrative [facility] - 04/20/2025 11:06 PM EST Performed at: 02 - [facility] ??[id number] Catalogue Librarian: Manuel Sullivan PhD, Phone: ??[phone] Authorizing ProviderResult TypeResult StatusKathleen E Rinkes DOLAB BLOOD ORDERABLESFinal ResultPerforming OrganizationAddressty/State/ZIP CodePhone Number [facility] * Urine culture (04/18/2025 9:19 AM EST)ComponentValueRef RangeTest Method Analysis TimePerformed AtPathologist SignatureUrine Cult Rt StatusFinal report [facility]PSpecimen (Source)Anatomical Location / LateralityCollection Method / VolumeCollection TimeReceived TimeUrineUrine specimen obtained by clean catch procedure / Ktogdua5304/18/2025 9:19 AM EST04/18/2025omment:UR Narrative [facility] - 04/20/2025 11:06 PM EST Performed at: [address] ??[id number] Catalogue Librarian: Manuel Sullivan PhD, Phone: ??[phone] Authorizing ProviderResult TypeResult StatusKatcharu PIRES MICROBIOLOGY - GENERAL ORDERABLESFinal ResultPerforming OrganizationAddressCity/State/ZIP CodePhone Number [facility] from Last 3 Months Additional Health Concerns Active ProblemsNoted DateDiagnosed DateMeal Tracking and Blood Sugar Monitoring 04/18/2025 Insurance Care Teams Team MemberRelationshipSpecialtyStart DateEnd Date Promise Morley MD [address] [place] [address] PCP - GeneralFamily Medicine11/12/22
--- OUTSIDE RECORDS SUMMARY | 2025-05-02 12:07 | XMS_ITS | Encounter Summary ---
Author Organization [facility] Address [address] [place] [address] Care Team Providers Care Pattern Illustrator Name Role Phone Promise Morley MD Primary Care Provider [phone] Encounter Details DateTypeDepartmentCare Team (Latest Contact Info)Gayusbzuvqc78/20/2025Bamboo flowsheet [facility] [address] [place] [address] Loren Alvares DO [address] [place] [address] Social History Tobacco UseTypesPacks/DayYears UsedDateSmoking Tobacco: NeverSmokeless Tobacco: NeverAlcohol UseStandard Drinks/WeekCommentsNever0 (1 standard drink = 0.6 oz pure alcohol)caffeine intake: 1 cup of n1Dcyerltshax, Afraid, Rape, and Kick questionnaireAnswerDate RecordedWithin the [...] times a week01/02/2023How often do you attend catholic or orthodoxy services?More than 4 times per year 01/02/2023o you belong to any clubs or organizations such as catholic groups, unions, fraBug Music or athletic groups, or school groups?Yes01/02/2023How often do you attend meetings of the clubs or organizations you belong to?More than 4 times per year01/02/2023re you , , , , never , or living with a partner?Iwyrabi2001/02/2023UDIT-CAnswerDate RecordedQ1: How often do you have a [...] hard at all01/02/2023HQ-2AnswerDate Recorded Patient Health Questionnaire-2 [facility]bbv249[facility] Occupational Health - Occupational Stress QuestionnaireAnswerDate [...] steady place to sleep or slept in [facility] (including now)?No 01/02/2023Estimated Date of VwpgswkoBgiulouwCkw21/08/2026Based on UltrasoundSex and Gender InformationValueDate RecordedSex Assigned at Wjsmzu7611/05/2022 8:35 AM EDTLegal QadFubdzw23/15/2023 7:19 PM EDTGender Identity Cylmcc0711/05/2022 8:35 AM EDTSexual TmchvrgkdnlTxxdxyth22/30/2023 8:35 AM EDT documented as of this encounter Plan of Treatment DateTypeDepartmentCare Team (Latest Contact Info)Zjrobynrqpw68/16/2025 3:30 PM ESTRoutine [facility] [place] [facility] [address] [place] [address] Loren Alvares DO [address] [place] [address] documented as of this encounter Goals GoalPatient [...] Date Promise Morley MD [address] [place] [address] PCP - GeneralFamily Medicine11/12/22documented as of this encounter
--- OUTSIDE RECORDS SUMMARY | 2025-05-02 12:07 | XMS_ITS | Encounter Summary ---
Author Organization [facility] Address [address] [facility] [address] Care Team Providers Care Rv Mechanic Name Role Phone Promise Morley MD Primary Care Provider [phone] Encounter Details DateTypeDepartmentCare Team (Latest Contact Info)Vakfwvobzrm94/24/2025Telephone [facility] [place] [facility] [address] [place] [id number] Marguerite Perez LPN Social History Tobacco UseTypesPacks/DayYears UsedDateSmoking Tobacco: NeverSmokeless Tobacco: NeverAlcohol UseStandard Drinks/WeekCommentsNever0 (1 standard drink = 0.6 oz pure alcohol)caffeine intake: 1 cup of m6Qznjfeelzve, Afraid, Rape, and Kick questionnaireAnswerDate RecordedWithin the [...] times a week01/02/2023How often do you attend religious or rastafari services?More than 4 times per year 01/02/2023o you belong to any clubs or organizations such as religious groups, unions, fraternal or athletic groups, or school groups?Yes01/02/2023How often do you attend meetings of the clubs or organizations you belong to?More than 4 times per year01/02/2023re you , , , , never , or living with a partner?Yrszthh0201/02/2023UDIT-CAnswerDate RecordedQ1: How often do you have a [...] hard at all01/02/2023HQ-2AnswerDate Recorded Patient Health Questionnaire-2 Pdbmb308[facility] [place] [facility] - Occupational Stress QuestionnaireAnswerDate [...] in ashelter (including now)?No 01/02/2023Estimated Date of VqbhjuumMcasevdmWxr76/08/2026ased on UltrasoundSex and Gender InformationValueDate RecordedSex Assigned at Uagevd9711/05/2022 8:35 AM EDTLegal DvdLeuncc13/15/2023 7:19 PM EDTGender Identity Qwnmel5511/05/2022 8:35 AM EDTSexual ZkhruudwukxWqtayctn58/30/2023 8:35 AM EDT documented as of this encounter Miscellaneous Notes * Telephone Encounter - Marguerite Perez LPN - 05/02/2025 10:08 AM EST Pt called and lm on nurse ob line at 10:04 regarding dehydration, constipation and vomiting. Pt states she has been vomiting since 04/28/25 and tries to drink water but pukes it up. Pt is taking zofran. Called and spoke with pt at this time. Pt states she is starting to have spotting only when wiping.Pt denies cramping at this time. Pt states zofran is not helping and pee is orange. Advised pt to got to hospital for dehydration at this time. Pt agreeable. documented in this encounter Plan of Treatment DateTypeDepartmentCare Team (Latest Contact Info)Oestsnvadok19/16/2025 3:30 PM ESTRoutine [facility] [place] [facility] [address] [place] [phone] Loren Alvares DO [address] [place] [address] documented as of this encounter Goals GoalPatient Goal TypeAssociated ProblemsRecent ProgressPatient-Stated?Author Record Your Blood Sugar Daily Care PlanMeal Tracking and Blood Sugar MonitoringNoMarguerite Perez LPNdocumented as of this encounter Visit Diagnoses Diagnosis examination or test, positive result ([facility]) examination or test, positive result documented in this encounter Additional Health Concerns Active ProblemsNoted DateDiagnosed DateMeal Tracking and Blood Sugar Monitoring 04/18/2025documented as of this encounter Care Teams Team MemberRelationshipSpecialtyStart DateEnd Date Promise Morley MD [address] [place] [address] PCP - GeneralFamily Medicine11/12/22documented as of this encounter
[2025-05-02 12:49] VITALS: BP 139/85; PULSE 77; O2SAT 98
== END 2025-05-02 12:55 | disposition home or self-care (01) ==
PROVIDERS: Emergency Provider Emergency Medicine; PCP Family Medicine
DX: O21.9 Vomiting of pregnancy, unspecified (principal); Z3A.12 12 weeks gestation of pregnancy
CPT/HCPCS: 36415; 80048; 81001; 85025; 87086; 87804; 87811; 96361; 96374; 99284; J2405